=== PATIENT | female | born 1960 | race Caucasian/White ===

== ENCOUNTER 2019-10-07 10:45 | Outpatient (CLI) | payer MEDICARE, MEDICAID, SELFPAY ==
[2019-10-07 19:30] LABS: Basophils # 0.1 10^3/uL (0.0-0.1); Basophils % 0.6 %; Eosinophils # 0.3 10^3/uL (0.0-0.8); Eosinophils % 3.2 %; Hematocrit 40.5 % (37.0-47.0); Hemoglobin 12.3 g/dL (11.5-15.3); Lymphocytes # 2.7 10^3/uL (0.8-4.8); Lymphocytes % 28.5 %; Mean Corpuscular HGB Conc 30.4 g/dL (30.0-36.0); Mean Corpuscular Hemoglobin 26.8 pg (28.0-34.0); Mean Corpuscular Volume 88.2 fL (81-99); Mean Platelet Volume 10.7 fL (7.4-10.4); Monocytes # 0.6 10^3/uL (0.2-0.9); Monocytes % 6.1 %; Neutrophils # 5.9 10^3/uL (1.8-7.7); Neutrophils % 61.4 %; Nucleated Red Blood Cells % 0 %; Platelet Count 371 10^3/cmm (130-400); Red Blood Count 4.59 10^6/uL (4.1-5.3); Red Cell Distribution Width 13.9 % (12.1-15.1); White Blood Count 9.6 10^3/uL (4.0-10.0)
[2019-10-07 20:03] LABS: Alanine Aminotransferase 19 U/L (0-33); Albumin Level 4.3 g/dL (3.5-5.2); Alkaline Phosphatase 88 IU/L (35-105); Anion Gap 19.6 (5-19); Aspartate Amino Transferase 21 U/L (0-32); Blood Urea Nitrogen 16 mg/dL (8-23); Calcium 9.9 mg/dL (8.5-10.5); Carbon Dioxide 24 mmol/L (22-29); Chloride 100 mmol/L (98-107); Globulin 3.3 g/dL (1.3-4.6); Glomerular Filtration Rate 63.9 mL/min (90-130); Glucose 87 mg/dL (65-115); Osmolality Calculated 284 mOsm/kg (285-295); Potassium 4.6 mmol/L (3.5-5.1); Sodium 139 mmol/L (136-145); Total Bilirubin 0.2 mg/dL (0.15-1.2); Total Protein 7.6 g/dL (6.6-8.7)
== END 2019-10-07 10:46 | disposition home or self-care (01) ==
LOC: ONCMED 10-08 10:07
PROVIDERS: Family Provider Internal Medicine; Visit Provider Internal Medicine Medical Oncology
DX: C50.411 Malignant neoplasm of upper-outer quadrant of right female breast (principal)
CPT/HCPCS: 80053; 85025

== ENCOUNTER 2019-10-09 07:10 | Outpatient (CLI) | payer MEDICARE, MEDICAID, SELFPAY ==
--- NOTE | 2019-10-09 20:17 | ONC FU_ITS ---
Dr. Brooke Patient Follow-Up Note Patient: Karin Gonzalez Unit #: [id number]: [id number] Dicatated By: Oliver Brooke M.D.Date of Visit:Oct 09, 2019 Telehealth Progress Note The patient has been informed that the visit may not be secure and acknowledged the information. I have explained the option of participating in a telephone or video visit during the COVID-19 public health emergency to the patient. After being given an opportunity to ask questions about and discuss this type of visit, the patient verbally consented to proceeding with the telephone/video visit. the patient understands that this service replaces an office visit and they may be billed and /or responsible for any applicable copayments Chief Complaint: Breast cancer. History of Present Illness: This is a 58 year-old woman with grade 3 invasive ductal carcinoma of the right breast, stage IIIC (pT2, pN3a, M0), ER/LA positive and HER-2/zaki nonamplified. She had presented with a palpable right breast mass and axillary lymph nodes. Pre-operatively, she also had suspicious findings on MRI of the left breast. On 01/25/2012 she was taken to OR for modified radical mastectomy on the right and a simple mastectomy with axillary sentinel lymph node biopsy on the left. The right breast specimen showed a 4.4 cm high grade invasive ductal carcinoma with negative margins. However, 14/24 lymph nodes were involved. Prognostic profile showed ER 48%, LA 47%, HER-2/zaki equivocal, FISH not amplified at 1.1. Thus, her disease was stage IIIC (pT2, pN3a,M0). Her left breast pathology was benign. Her surgery was complicated with a right arm intermittent lymphedema. She completed adjuvant chemotherapy on 05/30/2012, although the regimen she received was not available from the records provided. She was prophylactic radiation to the right chest wall, completed on 08/08/2012 to a total dose of 6000 cGy. She began on adjuvant hormonal therapy with tamoxifen in August of 2012. Her LMP was at 48 years of age. She also underwent a delayed bilateral TRAM flap reconstruction on 02/24/2013. She then required revisions on 03/19/2013 and 06/16/2013, including excision of the fat necrosis at the donor site. She transferred her care to [facility] [place] and was first seen by Dr. Hwang on 08/19/2013. She was found to have a significant vitamin D deficiency. DEXA scan was normal in August of 2013. MRI of the brain performed due to ongoing headaches showed no evidence of metastatic disease, however it revealed partially empty sella turcica. TSH was within normal limits. She established care with special education resource teacher. In August of 2013 she underwent an upper endoscopy and colonoscopy, the findings were benign and included gastritis and diverticulosis. On 03/02/2014 there was concerning palpable nodule at 10:00 position of the left breast for which biopsy was recommended. A left breast ultrasound on 03/11/2014 showed a complex fluid collection up to 5 cm. An FNA of the cystic lesion was negative for malignancy. A CT of the chest on 03/26/2014 showed focal area of likely fat necrosis within the left TRAM flap. As per patient, no further intervention was recommended by her plastic surgeon, Dr. Richardson in [place]. Her tamoxifen was continued until September 2014, then switched to Femara on 10/07/2014. Her other medical illnesses include GERD, diverticulitis, chronic migraine, and depression. She also has had chronic musculoskeletal pain. She is a nonsmoker. INTERIM HISTORY: CT scans of the chest, abdomen, and pelvis on 09/13/2016 showed no evidence of disease progression in the chest and no evidence of metastatic disease in the abdomen or pelvis. I had seen her for a followup visit on 09/17/2016. She was having increased fatigue and musculoskeletal pain, and I did have her try stopping the Femara, at least temporarily. I had seen her for a follow-up visit on 11/21/2016. She reported only slight interval improvement in her musculoskeletal pain, and she then restarted Femara 2.5 mg daily. On her follow-up visit on 03/11/2017 she complained of increased joint pain, and I had her stop the Femara again. She was seen again for a followup visit on 04/16/2017. She was still having significant joint pain. Her sed rate was mildly elevated. I opted to treat with her prednisone, initially at 10 mg bid for 2 weeks, then tapering to 10 mg daily. She was seen for follow-up again on 05/16/2017. At that point she was feeling somewhat better. Her Femara remained on hold. She continued tapering the prednisone. On her follow-up visit on 06/24/2017 she was feeling better, and at that point she began further adjuvant hormonal therapy with exemestane 25 mg daily. As of her follow-up visit on 10/13/2018, she appeared to be tolerating it with acceptable toxicity. She is seen for a followup visit by Telehealth. She has been feeling pretty good generally, though she says her energy is not too good. She is able to do light work. ECOG score is 1. Her appetite also is not good, but her weight seems to be stable. She has not had fever. She does have a lot of hot flashes/sweating. Her main complaint is that her joints have been hurting a lot more, particularly in her neck and shoulders. She reports having some sinus drainage and cough. She does not complain of shortness of breath or chest pain. She sometimes has nausea early in the morning. She also complains of constipation. She has no complaints. She is not recently had any migraine headache. She has had ongoing problems with numbness/tingling in her hands. She has chronic anxiety. She has been having difficulty sleeping due to the pain. Medications: Anoro Ellipta Aerosol Powder, Breath Activated Inhalation daily, CeleXA 1 (20 mg) Tablet Oral daily, Ergocalciferol 1 (44157 Units) Capsule Oral q 30 days, Exemestane 1 (25 mg) Tablet Oral daily, Levothyroxine Sodium 1 (75 mcg) Tablet Oral daily, Meloxicam 1 (15 mg) Tablet Oral daily, Multivitamin Adult 1 Tablet Oral daily, Omeprazole 1 (20 mg) Tablet, enteric coated Oral daily, SEROquel 1 Tablet (of 25 mg) Oral PRN, SUMAtriptan Succinate 0.5 Tablet (of 100 mg) Oral PRN, Wellbutrin XL 1 (150 mg) Tablet SR 24 HR Oral daily, Xanax Tablet Oral PRN Allergies: Cipro, pain med, and tape. Review of Systems: Constitutional - She has been feeling good, though her energy is low. She is able to do work in and around the house. Her appetite is poor, but she is able to eat. Her weight is stable. No fever or chills. She is having persistant hot flashes with sweating. ECOG score is 1, ENMT - She has chronic sinus drainage. No mouth sores. No sore throat or difficulty swallowing, Hematologic/Lymphatic - No abnormal bruising or bleeding, Respiratory - No shortness of breath. She has an occasional cough due to post nasal drainage. No pleuritic pain or hemoptysis, Cardiovascular - No angina pain. No palpitations, Gastrointestinal - No nausea or vomiting. Her heartburn is well managed with Prilosec. No diarrhea. She has constipation. No blood in the stool or black stools, Genitourinary (F) - No dysuria or hematuria. No urinary frequency. No urgency or incontinence, Musculoskeletal - She is having increased joint pain, especially in her shoulders, Integumentary - No skin complications, Neurologic - No headache or dizziness. She has numbness and tingling in her hands and feet, worse to her hands, Psychiatric - Her anxiety is managed with Celexa and Wellbutrin. No depression. She is having difficulty sleeping due to pain. Physical Examination: Constitutional - She still looks pretty good generally. Lab/Imaging: Test performed on Oct 07, 2019 10:45 Sodium 139 mmol/L Potassium 4.6 mmol/L Chloride 100 mmol/L CO2 24 mmol/L Anion Gap 19.6 BUN 16 mg/dL Creatinine 0.9 mg/dL Cr Clearance (Est) 99.0100 mL/min eGFR 63.9 mL/min Glucose 87 mg/dL Calcium 9.9 mg/dL Protein, Total 7.6 g/dL Albumin 4.3 g/dL Globulin 3.3 g/dL Bilirubin, Total 0.2 mg/dL ALT (SGPT) 19 U/L AST (SGOT) 21 U/L Alkaline Phosphatase 88 IU/L WBC 9.6 10 3/uL RBC 4.59 10 6/uL HGB 12.3 g/dL HCT 40.5 % MCV 88.2 fL MCH 26.8 pg MCHC 30.4 g/dL RDW 13.9 % Platelet Count 371 10 3/cmm MPV 10.7 fL Neutrophils 5.9 10 3/uL Lymphocytes 2.7 10 3/uL Monocytes 0.6 10 3/uL Eosinophils 0.3 10 3/uL Basophils 0.1 10 3/uL Neutrophil % 61.4 % Lymphocyte % 28.5 % Monocyte % 6.1 % Eosinophil % 3.2 % Basophils % 0.6 % Impression: 1. Patient with grade 3 invasive ductal carcinoma of the right breast, stage IIIC (pT2, pN3a, M0), ER/LA positive and HER-2/zaki nonamplified. 2. She underwent right modified radical mastectomy and left simple mastectomy with axillary sentinel lymph node biopsy on 01/25/2012. 3. She was given adjuvant chemotherapy, completed in May 2012. 4. She was then given prophylactic radiation to the right chest wall, completed in July 2012 to a total dose of 6000 cGy. 5. She began adjuvant hormonal therapy with tamoxifen in August 2012. Her treatment was switched to Femara as of September 2014. 6. Her treatment has been complicated by chronic lymphedema of the right arm. Her other medical illnesses include: 7. GERD. 8. Diverticulitis. 9. Chronic migraine. 10. Depression. 11. She had MRI evidence of partially empty sella turcica. 12. She has chronic musculoskeletal pain. On her followup visit in September 2016 she had increased fatigue and she also had increasing musculoskeletal pain. I suspected some of that was related to Femara, and I did have her stop taking it. During subsequent followup, there appeared to be no significant improvement in her symptoms, and she restarted Femara as of her visit on 11/21/2016. Her joint pain subsequently worsened, and it was stopped again as of 03/11/2017. She was seen again on 04/16/2017. Her symptoms had not improved. Her sed rate was mildly elevated, and at that point I opted to give her a short course of steroid therapy with prednisone. She had some improvement in her symptoms with the prednisone, though she continued to complain of some joint pain and fatigue. As of her follow-up visit on 05/16/2017, she proceeded to taper off prednisone, but she continued meloxicam 7.5 mg daily. She remained off Femara. As of her follow-up visit on 07/04/2017 joint symptoms had improved, and she then began further adjuvant hormonal therapy with exemestane 25 mg daily. During follow-up has had some joint pain and some fatigue with the exemestane, and since her last visit, the joint pain has worsened somewhat, particularly in the neck and shoulders. She feels the side effects are still tolerable. Thus far there is been no obvious recurrence of the breast cancer. Plan: She continues adjuvant hormonal therapy with the exemestane 25 mg daily. She will be scheduled for a follow-up visit in 3 months. At that point she will have completed 5 years of aromatase inhibitor therapy, and we will have to determine whether to stop treatment or attempt to continue with extended adjuvant hormonal therapy. Signed By: Oliver Brooke M.D. <<Signature on File>>
== END 2019-10-09 07:11 | disposition home or self-care (01) ==
LOC: ONCMED 07:16
PROVIDERS: Family Provider Internal Medicine; Visit Provider Internal Medicine Medical Oncology
DX: C50.411 Malignant neoplasm of upper-outer quadrant of right female breast (principal); Z17.0 Estrogen receptor positive status [ER+]; Z79.811 Long term (current) use of aromatase inhibitors; K21.9 Gastro-esophageal reflux disease without esophagitis; K57.92 Diverticulitis of intestine, part unspecified, without perforation or abscess without bleeding; G43.709 Chronic migraine without aura, not intractable, without status migrainosus; F32.9 Major depressive disorder, single episode, unspecified; M79.10 Myalgia, unspecified site

== ENCOUNTER 2020-01-27 11:52 | Outpatient (CLI) | payer MEDICARE, MEDICAID, SELFPAY ==
[2020-01-27 13:23] LABS: 25 Hydroxy Vitamin D 14 ng/mL (30-100)
[2020-01-27 15:03] LABS: Glucose 98 mg/dL (65-115)
--- NOTE | 2020-01-30 13:16 | ONC FU_ITS ---
Dr. Brooke Patient Follow-Up Note Patient: Karin Gonzalez Unit #: [id number]: [id number] Dicatated By: Oliver Brooke M.D.Date of Visit:Jan 27, 2020 Onc Med Follow-up/Prog Note Chief Complaint: Breast cancer. History of Present Illness: This is a 58 year-old woman with grade 3 invasive ductal carcinoma of the right breast, stage IIIC (pT2, pN3a, M0), ER/IL positive and HER-2/zaki nonamplified. She had presented with a palpable right breast mass and axillary lymph nodes. Pre-operatively, she also had suspicious findings on MRI of the left breast. On 01/25/2012 she was taken to OR for modified radical mastectomy on the right and a simple mastectomy with axillary sentinel lymph node biopsy on the left. The right breast specimen showed a 4.4 cm high grade invasive ductal carcinoma with negative margins. However, 14/24 lymph nodes were involved. Prognostic profile showed ER 48%, IL 47%, HER-2/zaki equivocal, FISH not amplified at 1.1. Thus, her disease was stage IIIC (pT2, pN3a,M0). Her left breast pathology was benign. Her surgery was complicated with a right arm intermittent lymphedema. She completed adjuvant chemotherapy on 05/30/2012, although the regimen she received was not available from the records provided. She was prophylactic radiation to the right chest wall, completed on 08/08/2012 to a total dose of 6000 cGy. She began on adjuvant hormonal therapy with tamoxifen in August of 2012. Her LMP was at 48 years of age. She also underwent a delayed bilateral TRAM flap reconstruction on 02/24/2013. She then required revisions on 03/19/2013 and 06/16/2013, including excision of the fat necrosis at the donor site. She transferred her care to [facility] [place] and was first seen by Dr. Hwang on 08/19/2013. She was found to have a significant vitamin D deficiency. DEXA scan was normal in August of 2013. MRI of the brain performed due to ongoing headaches showed no evidence of metastatic disease, however it revealed partially empty sella turcica. TSH was within normal limits. She established care with stripper soft plastic. In August of 2013 she underwent an upper endoscopy and colonoscopy, the findings were benign and included gastritis and diverticulosis. On 03/02/2014 there was concerning palpable nodule at 10:00 position of the left breast for which biopsy was recommended. A left breast ultrasound on 03/11/2014 showed a complex fluid collection up to 5 cm. An FNA of the cystic lesion was negative for malignancy. A CT of the chest on 03/26/2014 showed focal area of likely fat necrosis within the left TRAM flap. As per patient, no further intervention was recommended by her plastic surgeon, Dr. Richardson in [place]. Her tamoxifen was continued until September 2014, then switched to Femara on 10/07/2014. CT scans of the chest, abdomen, and pelvis on 09/13/2016 showed no evidence of disease progression in the chest and no evidence of metastatic disease in the abdomen or pelvis. I had seen her for a followup visit on 09/17/2016. She was having increased fatigue and musculoskeletal pain, and I did have her try stopping the Femara, at least temporarily. I had seen her for a follow-up visit on 11/21/2016. She reported only slight interval improvement in her musculoskeletal pain, and she then restarted Femara 2.5 mg daily. On her follow-up visit on 03/11/2017 she complained of increased joint pain, and I had her stop the Femara again. She was seen again for a followup visit on 04/16/2017. She was still having significant joint pain. Her sed rate was mildly elevated. I opted to treat with her prednisone, initially at 10 mg bid for 2 weeks, then tapering to 10 mg daily. She was seen for follow-up again on 05/16/2017. At that point she was feeling somewhat better. Her Femara remained on hold. She continued tapering the prednisone. On her follow-up visit on 06/24/2017 she was feeling better, and at that point she began further adjuvant hormonal therapy with exemestane 25 mg daily. Her other medical illnesses include GERD, diverticulitis, chronic migraine, and depression. She also has had chronic musculoskeletal pain. She is a nonsmoker. INTERIM HISTORY: She is seen for a followup visit. She has been feeling okay, though she says her energy is still not real good. She is working. ECOG score is 1. She has good appetite. She has not had fever. She complains that she sweats all the time. She has constant sinus drainage, and she does have cough associated with phlegm in her throat. She does not complain of shortness of breath or chest pain. She does have obstructive sleep apnea, but she has never tried CPAP. She has no GI/ complaints other than some mild constipation. She has some joint pain, but not bad. She says her migraines are getting worse. She is having significant headaches at least 2-3 times a month. She occasionally has dizziness. She has a little bit of numbness/tingling. Medications: Anoro Ellipta Aerosol Powder, Breath Activated Inhalation daily, CeleXA 1 (20 mg) Tablet Oral daily, Exemestane 1 (25 mg) Tablet Oral daily, Levothyroxine Sodium 1 (75 mcg) Tablet Oral daily, Meloxicam 1 (15 mg) Tablet Oral daily, Multivitamin Adult 1 Tablet Oral daily, Omeprazole 1 (20 mg) Tablet, enteric coated Oral daily, SEROquel 1 Tablet (of 25 mg) Oral PRN, SUMAtriptan Succinate 0.5 Tablet (of 100 mg) Oral PRN, Wellbutrin XL 1 (150 mg) Tablet SR 24 HR Oral daily, Xanax Tablet Oral PRN Allergies: Cipro, pain med, and tape. Review of Systems: Constitutional - Her energy is not real good, but she is working. She has good appetite. She has not had fever. She says she sweats all the time. ECOG score is 1, ENMT - She has constant sinus drainage. No mouth sores. No sore throat or difficulty swallowing, Hematologic/Lymphatic - No abnormal bruising or bleeding, Respiratory - No shortness of breath. She has obstructive sleep apnea, but she has never tried CPAP. She has cough associated with phlegm in her throat. No pleuritic pain or hemoptysis, Cardiovascular - No angina pain. No palpitations, Gastrointestinal - No nausea or vomiting. Her acid reflux is adequately managed with medication. She has constipation. No blood in the stool or black stools, Genitourinary (F) - No dysuria or hematuria. No urinary frequency. No urgency or incontinence, Musculoskeletal - She has some joint pain, but not bad, Integumentary - No skin rash, Neurologic - She has migraine headaches 2-3 times a month. She thinks those are getting worse. She occasionally has dizziness. She has a little bit of numbness/tingling, Psychiatric - She has anxiety. She does not sleep very well at night. Vital Signs: Performed on Jan 27, 2020 13:26 Height - 63.00 in Weight - 63.00 lbs (LOW) BSA - 1.18 sq.m BMI - 11.16 (LOW) Temperature - 98.8 F Pulse - 95 /min Respiration - 20 /min BP - 131/85 mm(hg) O2 Sat - 98 % Pain - 6 Physical Examination: Constitutional - She looks pretty good generally, Eyes - Sclerae nonicteric. Conjunctivae clear, ENMT - No lesions noted in the oral cavity, Hematologic/Lymphatic - No cervical, clavicular, or axillary adenopathy, Respiratory - Lungs are clear with good air movement bilaterally, Cardiovascular - Heart rhythm is regular. There is no murmur, gallop, or rub noted, Abdomen - Soft. There is a mild abdominal wall herniation in the lower abdomen. Liver and spleen are not enlarged. There is no abdominal mass or ascites noted and there is no inguinal adenopathy, Extremities - There is chronic lymphedema of the right arm. There is no lower extremity edema. Pedal pulses are palpable bilaterally, Neurologic - No focal neurologic deficits noted. Lab/Imaging: Test performed on Jan 27, 2020 12:12 Glucose 98 mg/dL Test performed on Jan 27, 2020 12:10 Vitamin D (25-Hydroxy), Total 14 ng/mL Impression: 1. Patient with grade 3 invasive ductal carcinoma of the right breast, stage IIIC (pT2, pN3a, M0), ER/IL positive and HER-2/zaki nonamplified. 2. She underwent right modified radical mastectomy and left simple mastectomy with axillary sentinel lymph node biopsy on 01/25/2012. 3. She was given adjuvant chemotherapy, completed in May 2012. 4. She was then given prophylactic radiation to the right chest wall, completed in July 2012 to a total dose of 6000 cGy. 5. She began adjuvant hormonal therapy with tamoxifen in August 2012. Her treatment was switched to Femara as of September 2014. 6. Her treatment has been complicated by chronic lymphedema of the right arm. Her other medical illnesses include: 7. GERD. 8. Diverticulitis. 9. Chronic migraine. 10. Depression. 11. She had MRI evidence of partially empty sella turcica. 12. She has chronic musculoskeletal pain. On her followup visit in September 2016 she had increased fatigue and she also had increasing musculoskeletal pain. I suspected some of that was related to Femara, and I did have her stop taking it. During subsequent followup, there appeared to be no significant improvement in her symptoms, and she restarted Femara as of her visit on 11/21/2016. Her joint pain subsequently worsened, and it was stopped again as of 03/11/2017. She was seen again on 04/16/2017. Her symptoms had not improved. Her sed rate was mildly elevated, and at that point I opted to give her a short course of steroid therapy with prednisone. She had some improvement in her symptoms with the prednisone, though she continued to complain of some joint pain and fatigue. As of her follow-up visit on 05/16/2017, she proceeded to taper off prednisone, but she continued meloxicam 7.5 mg daily. She remained off Femara. As of her follow-up visit on 07/04/2017 joint symptoms had improved, and she then began further adjuvant hormonal therapy with exemestane 25 mg daily. During follow-up has had some joint pain and some fatigue with the exemestane. However, she has been able to tolerate it with acceptable toxicity and thus far there has been no evidence of recurrence of the breast cancer. Plan: She continues adjuvant hormonal therapy with the exemestane 25 mg daily. She will start vitamin D3 1000 units daily. I will see her again in 6 months, or sooner as needed. Signed By: Oliver Brooke M.D. <<Signature on File>>
== END 2020-01-27 11:53 | disposition home or self-care (01) ==
LOC: ONCMED 11:56
PROVIDERS: PCP Internal Medicine; Visit Provider Internal Medicine Medical Oncology
DX: C50.411 Malignant neoplasm of upper-outer quadrant of right female breast (principal); Z17.0 Estrogen receptor positive status [ER+]; E83.32 Hereditary vitamin D-dependent rickets (type 1) (type 2); E11.9 Type 2 diabetes mellitus without complications; K21.9 Gastro-esophageal reflux disease without esophagitis; K57.92 Diverticulitis of intestine, part unspecified, without perforation or abscess without bleeding; Z92.3 Personal history of irradiation; Z92.21 Personal history of antineoplastic chemotherapy; Z90.13 Acquired absence of bilateral breasts and nipples; Z79.818 Long term (current) use of other agents affecting estrogen receptors and estrogen levels; G43.909 Migraine, unspecified, not intractable, without status migrainosus; F32.9 Major depressive disorder, single episode, unspecified
CPT/HCPCS: 36415; 82306; 82947; 99214

== ENCOUNTER 2020-09-05 00:51 | Emergency (ER) | payer MEDICARE, MEDICAID, SELFPAY ==
[2020-09-05] VITALS (7 sets, daily range): BP systolic 107–139; BP diastolic 71–93; PULSE 89–112; RESP 16–18; TEMP 37.2–38.2; O2SAT 95–97; BMI 35.4
--- NOTE | 2020-09-05 00:52 | XR_ITS ---
WS: [id number] RIGHT SHOULDER: 2 VIEW(S) TECHNIQUE: Internal and external rotation. HISTORY: pain COMPARISON: None available. No fracture or dislocation or soft tissue abnormality. Mild narrowing of the AC joint with small hypertrophic osteophytes. Glenohumeral joint is mildly narrowed. 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 XR/XR shoulder RT min 2V* [id number] IMPRESSION: Mild before meals and glenohumeral joint arthritis.
--- NOTE | 2020-09-05 01:12 | ED_ITS ---
HPI - Extremity Problem General: Chief complaint: Extremity Problem,Nontraumatic Stated complaint: RIGHT SHOULDER PAIN Time Seen by Provider: 09/05/20 00:52 Source: patient Mode of arrival: ambulatory Limitations: no limitations History of Present Illness: HPI Narrative: 59-year-old female who has a history of breast cancer and has chronic lymphedema in her right arm. States o markell the last 4 to 5 days she is had increasing shoulder pain. States that her pain is got severe tonight and rates an 8 out of 10. She states she had decreased range of motion. She denies any fever. Denies any injury. Denies any increased swelling to her arm. States the pain is worse with motion and improved with rest Associated symptoms: Deny chest pain, fever(s) or rash Review of Systems Const: Denies: fever(s), chills, body aches or change in appetite Eyes: Denies: blurry vision or eye discomfort ENMT: Denies: throat pain or dental pain Card: Denies: chest pain Resp: Denies: dyspnea GI: Denies: abdominal pain, nausea, vomiting or diarrhea : Denies: dysuria Musc: Reports: joint pain Skin/Breast: Denies: rash Neuro: Denies: headache(s) Psych: Denies: depression Douglas/Lymph: Denies: easy bruising All/Imm: Denies: urticaria PFSH ED PFSH: Medical History (Updated 09/05/20 @ 04:33 by Candice Sanderson MD) Acquired lymphedema Anxiety Depression Diverticulitis Gastric ulcer GERD (gastroesophageal reflux disease) Hiatal hernia History of breast cancer in adulthood Lymph node enlargement Surgical History (Updated 01/08/20 @ 23:03 by TONYA Mcdonald) History of mastectomy, total Social History Smoking and tobacco status: never smoked Second hand smoke exposure: No Smoking risk assessment/counseling performed?: No Alcohol intake: never Desire information about alcohol rehabilitation?: No Desire information about substance/drug rehabilitation?: No Counseling given: No Physical Exam Const: COMMON NORMALS: no acute distress, patient oriented x3 and healthy appearing HENMT: COMMON NORMALS: normocephalic and atraumatic HEAD & SCALP: normocephalic and atraumatic Eye: COMMON NORMALS: Equal, round and reactive pupils present and EOMs intact bilaterally PUPIL: Yes Equal, round and reactive pupils present Neck/C-Spine: COMMON NORMALS: full ROM and supple Chest: COMMONS NORMALS: normal inspection of the chest and normal palpation of entire chest wall Resp: COMMON NORMALS: normal respiratory effort, No retractions, No use of accessory muscles and clear to auscultation bilaterally AUSCULTATION: clear to auscultation bilaterally Cardio: COMMON NORMALS: regular rate, regular rhythm and No murmurs present (Cardio) RATE: regular rate RHYTHM: regular rhythm GI: COMMON NORMALS: Normal to inspection, nondistended, normoactive bowel sounds present, Soft to palpation, non-tender and no masses PALPATION: Yes Soft to palpation Extremity: NARRATIVE EXTREMITY EXAM: Swelling to right arm that is chronic in nature from lymphedema. Tenderness in right shoulder with painful range of motion. No warmth to the shoulder joint. Distal pulses intact. Neuro: COMMON NORMALS: patient oriented x3, moves all extremities and no focal motor deficits Psych: COMMON NORMALS: mental status grossly normal, Normal thought process present and cooperative THOUGHT PROCESS: Normal thought process present Skin: COMMON NORMALS: no rashes or lesions noted and no wounds GENERAL SKIN EXAM: no rashes or lesions noted Course Vital Signs: Vital signs: Vital Signs Temperature 99.7 F H 09/05/20 05:07 Pulse Rate 91 09/05/20 05:07 Respiratory Rate 16 09/05/20 05:07 Blood Pressure 107/71 09/05/20 05:07 Pulse Oximetry 96 09/05/20 05:07 MDM - Extremity (Nontraumatic) MDM Narrative: Medical decision making narrative: Patient presented with a fever along with shoulder pain. Patient does have a fever here and elevated white count. CT showed no fluid collection in the joint ultrasound showed no DVT. I strongly recommended admission and she does have elevated white count I informed her I still concern for possible septic joint. She states she has had this in the past since cleared up with antibiotics at home. Patient refused admission and will place her on Augmentin. She is to follow-up with her PCP and return to ER if worsening. She understands and agrees to plan. Lab Data: Labs: Lab Results 09/05/20 09/05/20 09/05/20 Range/Units 01:28 01:28 01:28 WBC 17.4 H (4.0-10.0) 10^3/ uL RBC 4.50 (4.1-5.3) 10^6/u L Hgb 12.1 (11.5-15.3) g/dL Hct 39.7 (37.0-47.0) % MCV 88.2 (81-99) fL MCH 26.9 L (28.0-34.0) pg MCHC 30.5 (30.0-36.0) g/dL RDW 13.0 (12.1-15.1) % Plt Count 412 H (130-400) 10^3/c mm MPV 9.9 (7.4-10.4) fL Neut % (Auto) 69.0 % Lymph % (Auto) 21.0 % [place] % (Auto) 8.0 % Eos % (Auto) 1.2 % Baso % (Auto) 0.5 % Neut # (Auto) 12.02 H (1.8-7.7) 10^3/u L Lymph # (Auto) 3.7 (0.8-4.8) 10^3/u L [place] # (Auto) 1.4 H (0.2-0.9) 10^3/u L Eos # (Auto) 0.2 (0.0-0.8) 10^3/u L Baso # (Auto) 0.1 (0.0-0.1) 10^3/u L Nucleated RBC % (a uto) 0 % Nucleated RBCs # 0.0 /100WBC ESR Cancelled Sodium 137 (136-145) mmol/L Potassium 4.0 (3.5-5.1) mmol/L Chloride 101 (98-107) mmol/L Carbon Dioxide 24 (22-29) mmol/L Anion Gap 16.0 (5-19) BUN 17 (8-23) mg/dL Creatinine 0.9 (0.5-0.9) mg/dL GFR Calculation 63.7 L (90-130) mL/min Glucose 109 (65-115) mg/dL Calculated Osmolal ity 286 (285-295) mOsm/k g Lactate (0.5-2.2) mmol/L Calcium 9.5 (8.5-10.5) mg/dL C-Reactive Protein (0.0-4.9) mg/L 09/05/20 09/05/20 09/05/20 Range/Units 01:28 02:23 03:49 WBC (4.0-10.0) 10^3/ uL RBC (4.1-5.3) 10^6/u L Hgb (11.5-15.3) g/dL Hct (37.0-47.0) % MCV (81-99) fL MCH (28.0-34.0) pg MCHC (30.0-36.0) g/dL RDW (12.1-15.1) % Plt Count (130-400) 10^3/c mm MPV (7.4-10.4) fL Neut % (Auto) % Lymph % (Auto) % [place] % (Auto) % Eos % (Auto) % Baso % (Auto) % Neut # (Auto) (1.8-7.7) 10^3/u L Lymph # (Auto) (0.8-4.8) 10^3/u L [place] # (Auto) (0.2-0.9) 10^3/u L Eos # (Auto) (0.0-0.8) 10^3/u L Baso # (Auto) (0.0-0.1) 10^3/u L Nucleated RBC % (a uto) % Nucleated RBCs # /100WBC ESR 55 H Sodium (136-145) mmol/L Potassium (3.5-5.1) mmol/L Chloride (98-107) mmol/L Carbon Dioxide (22-29) mmol/L Anion Gap (5-19) BUN (8-23) mg/dL Creatinine (0.5-0.9) mg/dL GFR Calculation (90-130) mL/min Glucose (65-115) mg/dL Calculated Osmolal ity (285-295) mOsm/k g Lactate 0.9 (0.5-2.2) mmol/L Calcium (8.5-10.5) mg/dL C-Reactive Protein 20.6 H (0.0-4.9) mg/L Imaging Data^: CT Chest: Attestation: I personally reviewed and interpreted this imaging study as follows: Radiologist's impression: [employer] [address] [address] Scan Report Signed Patient: Karin Gonzalez Unit #: [id number] : 1960 Age/Sex: 59 / F ADM Date: 09/05/20 Loc: ER Room/Bed: Attending Dr: Ordering Provider/Ordering MD: Candice Sanderson MD Date of Service: 09/05/20 Procedure(s): CT chest w con* [id number] Accession Number(s): [id number] Report Number: [id number] PROCEDURE INFORMATION: Exam: CT Chest With Contrast; Diagnostic Exam date and time: 09/05/2020 2:31 AM Age: 59 years old Clinical indication: Fever; Prior surgery; Surgery date: 6+ months; Surgery type: Double masectomy TECHNIQUE: Imaging protocol: Diagnostic computed tomography of the chest with contrast. Radiation optimization: All CT scans at this facility use at least one of these dose optimization techniques: automated exposure control; mA and/or kV adjustment per patient size (includes targeted exams where dose is matched to clinical indication); or iterative reconstruction. Contrast material: OMNI 300; Contrast volume: 95 ml; Contrast route: INTRAVENOUS (IV); COMPARISON: CT Chest/Abdomen/Pelvis wwo 09/13/2016 1:43 PM RADIATION DOSE METRICS: Total DLP (mGy-cm): 979.89 FINDINGS: Lungs: Unremarkable. No consolidation. No masses. Pleural spaces: Unremarkable. No pneumothorax. No pleural effusion. Heart: Unremarkable. No cardiomegaly. No pericardial effusion. Mediastinal space: There is a small hiatal hernia. Aorta: Unremarkable. No aortic aneurysm. Lymph nodes: There has been a right axillary node dissection. Gallbladder and bile ducts: There has been a cholecystectomy. Bones/joints: Unremarkable. No acute fracture. Soft tissues: There is peripheral calcification of a region of the left breast fat which has progressed since the previous examination. Surgical clips are present in both breasts. CT/CT chest w con* [id number] IMPRESSION: 1. Fat necrosis in the left breast. 2. No cause for pain is identified. 3. Small hiatal hernia. Other CT: Radiologist's impression: [place] [address] [place] [address] CT Scan Report Signed Patient: Karin Gonzalez Unit #: [id number] : 1960 Age/Sex: 59 / F ADM Date: 09/05/20 Loc: ER Room/Bed: Attending Dr: Ordering Provider/Ordering MD: Candice Sanderson MD Date of Service: 09/05/20 Procedure(s): CT shoulder RT w con Accession Number(s): [id number] Report Number: [id number] PROCEDURE INFORMATION: Exam: CT Right Upper Extremity With Contrast, Shoulder Exam date and time: 09/05/2020 2:31 AM Age: 59 years old Clinical indication: Swelling; Arm, lower and arm, upper; Right; Prior surgery; Surgery date: 6+ months; Surgery type: Lymph nodes removed; Additional info: Pain TECHNIQUE: Imaging protocol: CT of the Right upper extremity with contrast material. Exam focused on the shoulder Radiation optimization: All CT scans at this facility use at least one of these dose optimization techniques: automated exposure control; mA and/or kV adjustment per patient size (includes targeted exams where dose is matched to clinical indication); or iterative reconstruction. Contrast material: OMNI 300; Contrast volume: 95 ml; Contrast route: INTRAVENOUS (IV); COMPARISON: No relevant prior studies available. 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 No acute fracture or dislocation. There is a patulous right shoulder joint capsule. Soft tissues: No soft tissue abscess. Lymph nodes: There has been a right axillary node dissection. Lungs: Visualized portions of the right lung are clear. CT/CT shoulder RT w con [id number] IMPRESSION: 1. No acute fracture or dislocation. 2. There is a patulous right shoulder joint capsule. 3. No cause for pain is identified. Discharge Plan Discharge Patient Disposition: Home Clinical Impression: Fever Qualifiers: Fever type: unspecified Qualified Code(s): R50.9 - Fever, unspecified Pain in right shoulder Qualifiers: Chronicity: acute Qualified Code(s): M25.511 - Pain in right shoulder Condition: Stable Prescriptions: [place] 5-325 mg tablet 1 tab PO Q6H PRN (Reason: pain) Qty: 14 RF: 0 ondansetron 4 mg tablet,disintegrating 4 mg PO Q6H PRN (Reason: nausea and vomiting) Qty: 14 RF: 0 Augmentin 875-125 mg tablet 1 tab PO BID Qty: 14 RF: 0 No Action bupropion HCl 300 mg tablet extended release 24 hr 300 mg PO QAM RF: 0 levothyroxine 75 mcg capsule 75 mcg PO DAILY RF: 0 omeprazole 20 mg capsule,delayed release(DR/EC) 20 mg PO BID RF: 0 meloxicam 15 mg tablet 15 mg PO DAILY RF: 0 citalopram [Celexa] 20 mg tablet 20 mg PO DAILY RF: 0 montelukast [Singulair] 10 mg tablet 10 mg PO DAILY RF: 0 exemestane 25 mg tablet 25 mg PO DAILY RF: 0 Anoro Ellipta 62.5-25 mcg/actuation blister with device 1 inh INHALATION DAILY RF: 0 alprazolam 0.5 mg tablet 0.5 mg PO BID RF: 0 permethrin 5 % cream 1 applic TOPICAL Q14D Qty: 60 RF: 1 Discharge Orders: Discharge ED (Routine); Ordered 09/05/20 Ordered By: Candice Sanderson Referrals: Oliver Rae DO [Primary Care Provider] - Discharge Diet: Advance as tolerated Discharge Activity: Resume usual activity Patient Instructions: Fever in Adults (ED), Opioid Safety Coding Level of Care Code ED Senior Office Assistant for Luanng Fwd Exam Comprehensive
[2020-09-05 01:30] LABS: Basophils # 0.1 10^3/uL (0.0-0.1); Basophils % 0.5 %; Eosinophils # 0.2 10^3/uL (0.0-0.8); Eosinophils % 1.2 %; Hematocrit 39.7 % (37.0-47.0); Hemoglobin 12.1 g/dL (11.5-15.3); Lymphocytes # 3.7 10^3/uL (0.8-4.8); Mean Corpuscular HGB Conc 30.5 g/dL (30.0-36.0); Mean Corpuscular Hemoglobin 26.9 pg (28.0-34.0); Mean Corpuscular Volume 88.2 fL (81-99); Mean Platelet Volume 9.9 fL (7.4-10.4); Monocytes # 1.4 10^3/uL (0.2-0.9); Neutrophils # 12.02 10^3/uL (1.8-7.7); Nucleated Red Blood Cells % 0 %; Platelet Count 412 10^3/cmm (130-400); White Blood Count 17.4 10^3/uL (4.0-10.0)
[2020-09-05] MEDS: ondansetron 2 mg/ML SDV 2 mL 4 MG IVP (01:36)
--- NOTE | 2020-09-05 01:37 | CTR_ITS ---
PROCEDURE INFORMATION: Exam: CT Right Upper Extremity With Contrast, Shoulder Exam date and time: 09/05/2020 2:31 AM Age: 59 years old Clinical indication: Swelling; Arm, lower and arm, upper; Right; Prior surgery; Surgery date: 6+ months; Surgery type: Lymph nodes removed; Additional info: Pain TECHNIQUE: Imaging protocol: CT of the Right upper extremity with contrast material. Exam focused on the shoulder Radiation optimization: All CT scans at this facility use at least one of these dose optimization techniques: automated exposure control; mA and/or kV adjustment per patient size (includes targeted exams where dose is matched to clinical indication); or iterative reconstruction. Contrast material: OMNI 300; Contrast volume: 95 ml; Contrast route: INTRAVENOUS (IV); COMPARISON: No relevant prior studies available. 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 No acute fracture or dislocation. There is a patulous right shoulder joint capsule. Soft tissues: No soft tissue abscess. Lymph nodes: There has been a right axillary node dissection. Lungs: Visualized portions of the right lung are clear. CT/CT shoulder RT w con [id number] IMPRESSION: 1. No acute fracture or dislocation. 2. There is a patulous right shoulder joint capsule. 3. No cause for pain is identified. Radiation Dose CTDIVOL = (mGy): DLP = 1826.75 (mGy-cm)
--- NOTE | 2020-09-05 01:38 | XR_ITS ---
WS: [id number] Exam: XR chest 1V portable [id number] Date/Time of Exam: 09/05/2020 2:31 AM Reason For Exam: fever Comparison 07/03/2016. The lungs are clear and fully expanded. Normal cardiomediastinal structures and bony elements. Surgic al clips along both axilla. XR/XR chest 1V portable [id number] IMPRESSION: 1. No acute cardiopulmonary finding. No change.
[2020-09-05] MEDS: morphine 4 mg/mL SDV 1 mL IVP (01:39)
--- NOTE | 2020-09-05 01:40 | CTR_ITS ---
PROCEDURE INFORMATION: Exam: CT Chest With Contrast; Diagnostic Exam date and time: 09/05/2020 2:31 AM Age: 59 years old Clinical indication: Fever; Prior surgery; Surgery date: 6+ months; Surgery type: Double masectomy TECHNIQUE: Imaging protocol: Diagnostic computed tomography of the chest with contrast. Radiation optimization: All CT scans at this facility use at least one of these dose optimization techniques: automated exposure control; mA and/or kV adjustment per patient size (includes targeted exams where dose is matched to clinical indication); or iterative reconstruction. Contrast material: OMNI 300; Contrast volume: 95 ml; Contrast route: INTRAVENOUS (IV); COMPARISON: CT Chest/Abdomen/Pelvis wwo 09/13/2016 1:43 PM RADIATION DOSE METRICS: Total DLP (mGy-cm): 979.89 FINDINGS: Lungs: Unremarkable. No consolidation. No masses. Pleural spaces: Unremarkable. No pneumothorax. No pleural effusion. Heart: Unremarkable. No cardiomegaly. No pericardial effusion. Mediastinal space: There is a small hiatal hernia. Aorta: Unremarkable. No aortic aneurysm. Lymph nodes: There has been a right axillary node dissection. Gallbladder and bile ducts: There has been a cholecystectomy. Bones/joints: Unremarkable. No acute fracture. Soft tissues: There is peripheral calcification of a region of the left breast fat which has progressed since the previous examination. Surgical clips are present in both breasts. CT/CT chest w con* [id number] IMPRESSION: 1. Fat necrosis in the left breast. 2. No cause for pain is identified. 3. Small hiatal hernia. Radiation Dose CTDIVOL = (mGy): DLP = 979.89 (mGy-cm)
[2020-09-05 01:50] LABS: Blood Urea Nitrogen 17 mg/dL (8-23); Calcium 9.5 mg/dL (8.5-10.5); Carbon Dioxide 24 mmol/L (22-29); Chloride 101 mmol/L (98-107); Glomerular Filtration Rate 63.7 mL/min (90-130); Glucose 109 mg/dL (65-115); Osmolality Calculated 286 mOsm/kg (285-295); Sodium 137 mmol/L (136-145)
[2020-09-05 02:30] LABS: C Reactive Protein 20.6 mg/L (0.0-4.9)
[2020-09-05] MEDS: iohexol 300 mg/mL 100 mL Btl IV (02:46)
[2020-09-05 03:07] LABS: Erythrocyte Sedimentation Rate 55 mm/hr (0-15)
--- NOTE | 2020-09-05 03:28 | USCV_ITS ---
Karin Gonzalez Age: 59 Gender: F : 1960 Exam Date: 09/05/2020 03:53 Ordering Phys: Candice Sanderson MD Technologist: Exam Location[place] [facility] [place]: RT SHOULDER PAIN HISTORY: Upper extremity pain. PROCEDURES: Venous duplex imaging was performed in only the right upper extremity. The following venous structures were evaluated: internal jugular vein, subclavian vein, axillary vein, and brachial veins. In addition, the basilic vein, cephalic vein, radial vein, and ulnar vein. FINDINGS: No evidence of deep vein thrombosis or superficial thrombophlebitis in the right upper extremity. The veins were found to be easily compressible with no evidence of thrombosis. CONCLUSIONS No evidence of venous thrombosis in the above-mentioned identifiable veins in the right upper extremity Dr Vandana Oscar MD FAC (Electronically Signed) Final Date: 05 September 2020 17:28 S
[2020-09-05] MEDS: vancomycin 1,000 MG in sodium chloride 0.9% 250 ML 250 MG IV (03:57)
[2020-09-05] MEDS: acetaminophen 500 mg Tablet 1000 MG PO (04:00)
[2020-09-05 04:28] LABS: Lactate (Lactic Acid level) 0.9 mmol/L (0.5-2.2)
== END 2020-09-05 05:08 | disposition home or self-care (01) ==
PROVIDERS: Emergency Provider Emergency Medicine; PCP Internal Medicine
DX: M25.511 Pain in right shoulder (principal); R50.9 Fever, unspecified; Z85.3 Personal history of malignant neoplasm of breast
CPT/HCPCS: 71045; 71260; 73030; 73201; 80048; 83605; 85025; 85651; 86140; 87040; 93971; 96365; 96375; 99285; J2270; J2405; J3370; J7050; Q9967

== ENCOUNTER 2020-09-13 13:34 | Outpatient (CLI) | payer MEDICARE, MEDICAID, SELFPAY ==
[2020-09-13 15:01] LABS: Basophils # 0.1 10^3/uL (0.0-0.1); Basophils % 0.5 %; Eosinophils # 0.3 10^3/uL (0.0-0.8); Eosinophils % 2.7 %; Hematocrit 36.9 % (37.0-47.0); Hemoglobin 11.3 g/dL (11.5-15.3); Lymphocytes # 2.3 10^3/uL (0.8-4.8); Lymphocytes % 20.7 %; Mean Corpuscular HGB Conc 30.6 g/dL (30.0-36.0); Mean Corpuscular Hemoglobin 26.4 pg (28.0-34.0); Mean Corpuscular Volume 86.2 fL (81-99); Mean Platelet Volume 9.7 fL (7.4-10.4); Monocytes # 0.9 10^3/uL (0.2-0.9); Neutrophils # 7.49 10^3/uL (1.8-7.7); Neutrophils % 67.7 %; Nucleated Red Blood Cells % 0 %; Platelet Count 516 10^3/cmm (130-400); Red Blood Count 4.28 10^6/uL (4.1-5.3); Red Cell Distribution Width 12.8 % (12.1-15.1); White Blood Count 11.1 10^3/uL (4.0-10.0)
[2020-09-13 15:41] LABS: 25 Hydroxy Vitamin D 12 ng/mL (30-100)
--- NOTE | 2020-09-17 10:13 | ONC FU_ITS ---
Dr. Brooke Patient Follow-Up Note Patient: Karin Gonzalez Unit #: [id number]: 1960 Dicatated By: Oliver Brooke M.D.Date of Visit:Sep 13, 2020 Onc Med Follow-up/Prog Note Chief Complaint: Breast cancer. History of Present Illness: This is a 59 year-old woman with grade 3 invasive ductal carcinoma of the right breast, stage IIIC (pT2, pN3a, M0), ER/MI positive and HER-2/zaki nonamplified. She had presented with a palpable right breast mass and axillary lymph nodes. Pre-operatively, she also had suspicious findings on MRI of the left breast. On 01/25/2012 she was taken to OR for modified radical mastectomy on the right and a simple mastectomy with axillary sentinel lymph node biopsy on the left. The right breast specimen showed a 4.4 cm high grade invasive ductal carcinoma with negative margins. However, 14/24 lymph nodes were involved. Prognostic profile showed ER 48%, MI 47%, HER-2/zaki equivocal, FISH not amplified at 1.1. Thus, her disease was stage IIIC (pT2, pN3a,M0). Her left breast pathology was benign. Her surgery was complicated with a right arm intermittent lymphedema. She completed adjuvant chemotherapy on 05/30/2012, although the regimen she received was not available from the records provided. She was prophylactic radiation to the right chest wall, completed on 08/08/2012 to a total dose of 6000 cGy. She began on adjuvant hormonal therapy with tamoxifen in August of 2012. Her LMP was at 48 years of age. She also underwent a delayed bilateral TRAM flap reconstruction on 02/24/2013. She then required revisions on 03/19/2013 and 06/16/2013, including excision of the fat necrosis at the donor site. She [place] her [place] [facility] [place] was first seen by Dr. Hwang on 08/19/2013. She was found to have a significant vitamin D deficiency. DEXA scan was normal in August of 2013. MRI of the brain performed due to ongoing headaches showed no evidence of metastatic disease, however it revealed partially empty sella turcica. TSH was within normal limits. She established care with balance sheet analyst. In August of 2013 she underwent an upper endoscopy and colonoscopy, the findings were benign and included gastritis and diverticulosis. On 03/02/2014 there was concerning palpable nodule at 10:00 position of the left breast for which biopsy was recommended. A left breast ultrasound on 03/11/2014 showed a complex fluid collection up to 5 cm. An FNA of the cystic lesion was negative for malignancy. A CT of the chest on 03/26/2014 showed focal area of likely fat necrosis within the left TRAM flap. As per patient, no further intervention was recommended by her plastic surgeon, Dr. Richardson in [place]. Her tamoxifen was continued until September 2014, then switched to Femara on 10/07/2014. CT scans of the chest, abdomen, and pelvis on 09/13/2016 showed no evidence of disease progression in the chest and no evidence of metastatic disease in the abdomen or pelvis. I had seen her for a followup visit on 09/17/2016. She was having increased fatigue and musculoskeletal pain, and I did have her try stopping the Femara, at least temporarily. I had seen her for a follow-up visit on 11/21/2016. She reported only slight interval improvement in her musculoskeletal pain, and she then restarted Femara 2.5 mg daily. On her follow-up visit on 03/11/2017 she complained of increased joint pain, and I had her stop the Femara again. She was seen again for a followup visit on 04/16/2017. She was still having significant joint pain. Her sed rate was mildly elevated. I opted to treat with her prednisone, initially at 10 mg bid for 2 weeks, then tapering to 10 mg daily. She was seen for follow-up again on 05/16/2017. At that point she was feeling somewhat better. Her Femara remained on hold. She continued tapering the prednisone. On her follow-up visit on 06/24/2017 she was feeling better, and at that point she began further adjuvant hormonal therapy with exemestane 25 mg daily. Her other medical illnesses include GERD, diverticulitis, chronic migraine, and depression. She also has had chronic musculoskeletal pain. She is a nonsmoker. INTERIM HISTORY: On 09/05/2020 she was seen in the emergency room with increased pain in the right shoulder and arm. Her chest CT showed evidence of fat necrosis in the left breast/reconstruction, but there was no evidence of metastatic disease and there was no apparent cause for the pain. CT of the right shoulder showed evidence of patulous right shoulder joint capsule but again there was no apparent cause for the pain identified. She also had a slight fever and she thought the underlying problem was cellulitis and she finally did convince them to treat her with antibiotic. She is seen for a scheduled visit. She now close to completing her course of treatment with Augmentin. Her symptoms are improving, though not completely resolved. She says her energy is the same. She has limited activity, but she is able to do light work. Appetite is variable. She has continued to have some slight fever, up to 100.1 degrees. She has a little bit of cough. She does not complain of shortness of breath or chest pain. She was having nausea, that has improved. She has chronic constipation. Bladder function has been okay. She also has some pain in her hips, which is chronic. She has headache off and on. She has some numbness in her hands. Medications: Anoro Ellipta Aerosol Powder, Breath Activated Inhalation daily, CeleXA 1 (20 mg) Tablet Oral daily, Exemestane 1 (25 mg) Tablet Oral daily, Levothyroxine Sodium 1 (75 mcg) Tablet Oral daily, Meloxicam 1 (15 mg) Tablet Oral daily, Multivitamin Adult 1 Tablet Oral daily, Omeprazole 1 (20 mg) Tablet, enteric coated Oral daily, SEROquel 1 Tablet (of 25 mg) Oral PRN, SUMAtriptan Succinate 0.5 Tablet (of 100 mg) Oral PRN, Wellbutrin XL 1 (150 mg) Tablet SR 24 HR Oral daily, Xanax Tablet Oral PRN Allergies: Cipro, pain med, and tape. Vital Signs: Performed on Sep 13, 2020 15:28 Height - 63.00 in Weight - 205.2 lbs (HIGH) BSA - 1.96 sq.m BMI - 36.35 (HIGH) Temperature - 98.7 F Pulse - 98 /min Respiration - 18 /min BP - 122/76 mm(hg) O2 Sat - 98 % Pain - 0 Fatigue - 6 Physical Examination: Constitutional - She looks pretty good generally, Eyes - Sclerae nonicteric. Conjunctivae clear, ENMT - No lesions noted in the oral cavity, Hematologic/Lymphatic - No cervical or clavicular adenopathy, Respiratory - Lungs are clear with good air movement bilaterally, Cardiovascular - Heart rhythm is regular. There is no murmur, gallop, or rub noted, Breasts - There are no lesions noted in the chest wall/reconstruction bilaterally. There is no axillary adenopathy, Abdomen - Soft. Liver and spleen are not enlarged. There is no abdominal mass or ascites noted and there is no inguinal adenopathy, Extremities - There is chronic lymphedema of the right arm. There is no associated erythema, and it does not feel warm to touch. There is limited range of motion at the right shoulder. There is no lower extremity edema, Neurologic - No focal neurologic deficits noted. Problem List: 1. Patient with grade 3 invasive ductal carcinoma of the right breast, stage IIIC (pT2, pN3a, M0), ER/MI positive and HER-2/zaki nonamplified. 2. She has chronic lymphedema of the right arm. 3. GERD. 4. Diverticulitis. 5. Chronic migraine. 6. Depression. 7. She had MRI evidence of partially empty sella turcica. 8. She has chronic musculoskeletal pain. Problems Addressed with this Encounter and Plan: 1. Patient with grade 3 invasive ductal carcinoma of the right breast, stage IIIC (pT2, pN3a, M0), ER/MI positive and HER-2/zaki nonamplified. She underwent right modified radical mastectomy and left simple mastectomy with axillary sentinel lymph node biopsy on 01/25/2012. She was given adjuvant chemotherapy, completed in May 2012. She was then given prophylactic radiation to the right chest wall, completed in July 2012 to a total dose of 6000 cGy. She began adjuvant hormonal therapy with tamoxifen in August 2012. Her treatment was switched to Femara as of September 2014. As of September 2016 he was put on hold due to increasing fatigue and musculoskeletal pain. Her symptoms eventually were controlled adequately on meloxicam. As of 07/04/2017 she then began further adjuvant hormonal therapy with exemestane 25 mg daily. During follow-up has continued to have some joint pain and some fatigue, but she has been able to tolerate the exemestane with acceptable toxicity. Thus far there has been no evidence of recurrence of the breast cancer. She continues adjuvant hormonal therapy with the exemestane 25 mg daily. I will see her again in 6 months, or sooner as needed. 2. Her treatment has been complicated by chronic lymphedema of the right arm. She was recently seen in the emergency room with increased pain in the right shoulder and arm. She also had a slight fever. She has been showing some improvement on antibiotic therapy with Augmentin for presumed cellulitis. As her symptoms have not completely resolved, she will continue the Augmentin for another 7 days. She is to call and let us know if this is not completely resolved. 3. She is at risk for osteoporosis due to aromatase inhibitor therapy. Her most recent bone density study, from 10/28/2017, still showed normal bone mineral density, but it had decreased compared to the previous study from October 2015. She overdue now for her surveillance DEXA scan, that will be scheduled. Her vitamin D level is being rechecked today, and that result is pending. Signed By: Oliver Brooke M.D. <<Signature on File>>
== END 2020-09-13 13:35 | disposition home or self-care (01) ==
PROVIDERS: PCP Internal Medicine; Visit Provider Internal Medicine Medical Oncology
DX: C50.411 Malignant neoplasm of upper-outer quadrant of right female breast (principal); Z17.0 Estrogen receptor positive status [ER+]; I89.0 Lymphedema, not elsewhere classified; Z90.13 Acquired absence of bilateral breasts and nipples; Z92.21 Personal history of antineoplastic chemotherapy; Z92.3 Personal history of irradiation; Z79.811 Long term (current) use of aromatase inhibitors
CPT/HCPCS: 36415; 82306; 85025; 99214

== ENCOUNTER 2021-02-21 13:53 | Outpatient (CLI) | payer MEDICARE, MEDICAID, SELFPAY ==
--- NOTE | 2021-02-21 13:59 | XR_ITS ---
WS: [id number] DEXA (DUAL ENERGY X-RAY ABSORPTIOMETRY) Bone mineral density was performed using a [email or web address] machine. HISTORY: VITAMIN D DEFICIENCY, asymptomatic MENOPAUSAL STATE COMPARISON: 10/28/2017 Lumbar spine BMD (L1-L4): 1.173 g/cm2 T score: -0.1 Z score: 0.4 Total hip BMD: Left: 1.055 g/cm2. T score: 0.4 Z score: 0.8 Right: 1.030 g/cm2. T score: 0.2 Z score: 0.6 10 year probability of a major osteoporotic fracture is 7%. Compared to the prior study from 10/28/2017. Lumbar spine bone mineral density has decreased by 1.2%. Bilateral hips bone mineral density has decrease by 1.5%. XR/XR DEXA axial skeleton* 12658 IMPRESSION: NORMAL BONE MINERAL DENSITY based upon the WHO classification for females. No significant change in bone mineral density since the most recent exam.
== END 2021-02-21 13:54 | disposition home or self-care (01) ==
PROVIDERS: PCP Internal Medicine; Visit Provider Internal Medicine Medical Oncology
DX: Z78.0 Asymptomatic menopausal state (principal); E55.9 Vitamin D deficiency, unspecified
CPT/HCPCS: 77080

== ENCOUNTER 2021-05-16 15:31 | Outpatient (CLI) | payer MEDICARE, MEDICAID, SELFPAY ==
--- NOTE | 2021-05-20 11:34 | ONC FU_ITS ---
Dr. Brooke Patient Follow-Up Note Patient: Karin Gonzalez Unit #: [id number]: [id number] Dicatated By: Oliver Brooke M.D.Date of Visit:May 16, 2021 Onc Med Follow-up/Prog Note Chief Complaint: Breast cancer. History of Present Illness: This is a 60 year-old woman with grade 3 invasive ductal carcinoma of the right breast, stage IIIC (pT2, pN3a, M0), ER/ID positive and HER-2/zaki nonamplified. She had presented with a palpable right breast mass and axillary lymph nodes. Pre-operatively, she also had suspicious findings on MRI of the left breast. On 01/25/2012 she was taken to OR for modified radical mastectomy on the right and a simple mastectomy with axillary sentinel lymph node biopsy on the left. The right breast specimen showed a 4.4 cm high grade invasive ductal carcinoma with negative margins. However, 14/24 lymph nodes were involved. Prognostic profile showed ER 48%, ID 47%, HER-2/zaki equivocal, FISH not amplified at 1.1. Thus, her disease was stage IIIC (pT2, pN3a,M0). Her left breast pathology was benign. Her surgery was complicated with a right arm intermittent lymphedema. She completed adjuvant chemotherapy on 05/30/2012, although the regimen she received was not available from the records provided. She was prophylactic radiation to the right chest wall, completed on 08/08/2012 to a total dose of 6000 cGy. She began on adjuvant hormonal therapy with tamoxifen in August of 2012. Her LMP was at 48 years of age. She also underwent a delayed bilateral TRAM flap reconstruction on 02/24/2013. She then required revisions on 03/19/2013 and 06/16/2013, including excision of the fat necrosis at the donor site. She transferred her care to [facility] [place] and was first seen by Dr. Hwang on 08/19/2013. She was found to have a significant vitamin D deficiency. DEXA scan was normal in August of 2013. MRI of the brain performed due to ongoing headaches showed no evidence of metastatic disease, however it revealed partially empty sella turcica. TSH was within normal limits. She established care with media strategist. In August of 2013 she underwent an upper endoscopy and colonoscopy, the findings were benign and included gastritis and diverticulosis. On 03/02/2014 there was concerning palpable nodule at 10:00 position of the left breast for which biopsy was recommended. A left breast ultrasound on 03/11/2014 showed a complex fluid collection up to 5 cm. An FNA of the cystic lesion was negative for malignancy. A CT of the chest on 03/26/2014 showed focal area of likely fat necrosis within the left TRAM flap. As per patient, no further intervention was recommended by her plastic surgeon, Dr. Richardson in [place]. Her tamoxifen was continued until September 2014, then switched to Femara on 10/07/2014. CT scans of the chest, abdomen, and pelvis on 09/13/2016 showed no evidence of disease progression in the chest and no evidence of metastatic disease in the abdomen or pelvis. I had seen her for a followup visit on 09/17/2016. She was having increased fatigue and musculoskeletal pain, and I did have her try stopping the Femara, at least temporarily. I had seen her for a follow-up visit on 11/21/2016. She reported only slight interval improvement in her musculoskeletal pain, and she then restarted Femara 2.5 mg daily. On her follow-up visit on 03/11/2017 she complained of increased joint pain, and I had her stop the Femara again. She was seen again for a followup visit on 04/16/2017. She was still having significant joint pain. Her sed rate was mildly elevated. I opted to treat with her prednisone, initially at 10 mg bid for 2 weeks, then tapering to 10 mg daily. She was seen for follow-up again on 05/16/2017. At that point she was feeling somewhat better. Her Femara remained on hold. She continued tapering the prednisone. On her follow-up visit on 06/24/2017 she was feeling better, and at that point she began further adjuvant hormonal therapy with exemestane 25 mg daily. Her other medical illnesses include GERD, diverticulitis, chronic migraine, and depression. She also has had chronic musculoskeletal pain. She is a nonsmoker. INTERIM HISTORY: On 09/05/2020 she was seen in the emergency room with increased pain in the right shoulder and arm. Her chest CT showed evidence of fat necrosis in the left breast/reconstruction, but there was no evidence of metastatic disease and there was no apparent cause for the pain. CT of the right shoulder showed evidence of patulous right shoulder joint capsule but again there was no apparent cause for the pain identified. She also had a slight fever and she thought the underlying problem was cellulitis and she finally did convince them to treat her with antibiotic. At her follow-up visit on 09/13/2020 the cellulitis appeared to be mostly resolved. She continued the exemestane, which she appeared to be tolerating with acceptable toxicity. She is seen for a scheduled visit. She has been feeling pretty good generally, though she says she still gets tired. She has doing housework and childcare. ECOG score is 1. She also complains that she has been having a lot of anxiety, and recently she has been having problems with her teeth, and she has been requiring dental care. Her appetite has been good. She has not had fever. She complains that she sweats all the time. She has sinus drainage and she complains of having mucus in the back of her throat. She does not complain of cough, and she has not been having shortness of breath or chest pain. She has no GI/ complaints other than constipation, which she says keeps getting worse. She still has some joint pain, particularly in her right shoulder. Her hips do not bother her too much as long she does not walk too far. She does get migraine headaches, though she has not had any recently. She has a little bit of numbness/tingling in her hands and feet. Medications: Anoro Ellipta Aerosol Powder, Breath Activated Inhalation daily, CeleXA 1 (20 mg) Tablet Oral daily, Exemestane 1 (25 mg) Tablet Oral daily, Levothyroxine Sodium 1 (75 mcg) Tablet Oral daily, Meloxicam 1 (15 mg) Tablet Oral daily, Multivitamin Adult 1 Tablet Oral daily, Omeprazole 1 (20 mg) Tablet, enteric coated Oral daily, SEROquel 1 Tablet (of 25 mg) Oral PRN, SUMAtriptan Succinate 0.5 Tablet (of 100 mg) Oral PRN, Wellbutrin XL 1 (150 mg) Tablet SR 24 HR Oral daily, Xanax Tablet Oral PRN Allergies: Cipro, pain med, and tape. Vital Signs: Performed on May 16, 2021 15:46 Height - 63.00 in Weight - 200.6 lbs (LOW) BSA - 1.94 sq.m BMI - 35.53 (HIGH) Temperature - 97.4 F (LOW) Pulse - 89 /min Respiration - 18 /min BP - 142/89 mm(hg) (HIGH) O2 Sat - 97 % Pain - 0 Fatigue - 7 Physical Examination: Constitutional - She looks pretty good generally, Eyes - Sclerae nonicteric. Conjunctivae clear, ENMT - No lesions noted in the oral cavity, Hematologic/Lymphatic - No cervical, clavicular, or axillary adenopathy, Respiratory - Lungs are clear with good air movement bilaterally, Cardiovascular - Heart rhythm is regular. There is no murmur, gallop, or rub noted, Abdomen - Soft. Liver and spleen are not enlarged. There is no abdominal mass or ascites noted and there is no inguinal adenopathy, Extremities - There is chronic lymphedema of the right arm. There is no lower extremity edema, Neurologic - No focal neurologic deficits noted. Problem List: 1. Patient with grade 3 invasive ductal carcinoma of the right breast, stage IIIC (pT2, pN3a, M0), ER/ID positive and HER-2/zaki nonamplified. 2. She has chronic lymphedema of the right arm. 3. GERD. 4. Diverticulitis. 5. Chronic migraine. 6. Depression. 7. She had MRI evidence of partially empty sella turcica. 8. She has chronic musculoskeletal pain. Problems Addressed with this Encounter and Plan: 1. Patient with grade 3 invasive ductal carcinoma of the right breast, stage IIIC (pT2, pN3a, M0), ER/ID positive and HER-2/zaki nonamplified. She underwent right modified radical mastectomy and left simple mastectomy with axillary sentinel lymph node biopsy on 01/25/2012. She was given adjuvant chemotherapy, completed in May 2012. She was then given prophylactic radiation to the right chest wall, completed in July 2012 to a total dose of 6000 cGy. She began adjuvant hormonal therapy with tamoxifen in August 2012. Her treatment was switched to Femara as of September 2014. As of September 2016 he was put on hold due to increasing fatigue and musculoskeletal pain. Her symptoms eventually were controlled adequately on meloxicam. As of 07/04/2017 she then began further adjuvant hormonal therapy with exemestane 25 mg daily. During follow-up has continued to have some joint pain and some fatigue, but she has been able to tolerate the exemestane with acceptable toxicity. Thus far there has been no evidence of recurrence of the breast cancer. She continues adjuvant hormonal therapy with the exemestane 25 mg daily. I will see her again in 6 months. 2. Her treatment has been complicated by chronic lymphedema of the right arm. She has had occasional episodes of cellulitis. 3. She is at risk for osteoporosis due to aromatase inhibitor therapy. Her most recent bone density study, from 10/28/2017, still showed normal bone mineral density, but it had decreased compared to the previous study from October 2015. Repeat DEXA scan on 02/21/2021 showed normal bone mineral density, T score -0.1 in the lumbar spine, 0.4 in the left hip, and 0.2 in the right hip. She does not require any treatment, but it does require ongoing monitoring. Signed By: Oliver Brooke M.D. <<Signature on File>>
== END 2021-05-16 15:32 | disposition home or self-care (01) ==
LOC: ONCMED 15:37
PROVIDERS: PCP Internal Medicine; Visit Provider Internal Medicine Medical Oncology
DX: C50.811 Malignant neoplasm of overlapping sites of right female breast (principal); Z17.0 Estrogen receptor positive status [ER+]; Z90.13 Acquired absence of bilateral breasts and nipples; Q82.0 Hereditary lymphedema; K21.9 Gastro-esophageal reflux disease without esophagitis; K57.92 Diverticulitis of intestine, part unspecified, without perforation or abscess without bleeding; G43.809 Other migraine, not intractable, without status migrainosus; F32.9 Major depressive disorder, single episode, unspecified; B02.29 Other postherpetic nervous system involvement; M79.18 Myalgia, other site; Z79.818 Long term (current) use of other agents affecting estrogen receptors and estrogen levels; Z79.811 Long term (current) use of aromatase inhibitors
CPT/HCPCS: 99214

== ENCOUNTER 2021-10-14 09:59 | Emergency (ER) | payer MEDICARE, MEDICAID, SELFPAY ==
[2021-10-14 10:10] VITALS: BP 134/86; PULSE 112; RESP 18; TEMP 37.3; O2SAT 97; BMI 34.7
--- NOTE | 2021-10-14 10:30 | PC.NURSE ---
PT UNABLE TO PROVIDE UA SAMPLE AT THIS TIME D/T USING THE RESTROOM PRIOR TO TRIAGE.
[2021-10-14 10:51] LABS: Basophils # 0.1 10^3/uL (0.0-0.1); Basophils % 0.4 %; Eosinophils # 0.2 10^3/uL (0.0-0.8); Hematocrit 42.9 % (37.0-47.0); Hemoglobin 13.4 g/dL (11.5-15.3); Lymphocytes # 0.8 10^3/uL (0.8-4.8); Lymphocytes % 6.4 %; Mean Corpuscular HGB Conc 31.2 g/dL (30.0-36.0); Mean Corpuscular Hemoglobin 26.6 pg (28.0-34.0); Mean Corpuscular Volume 85.1 fl (81-99); Mean Platelet Volume 9.7 fL (7.4-10.4); Monocytes # 0.4 10^3/uL (0.2-0.9); Monocytes % 3.5 %; Neutrophils # 10.56 10^3/uL (1.8-7.7); Neutrophils % 87.5 %; Nucleated Red Blood Cells % 0 %; Platelet Count 353 10^3/cmm (130-400); Red Blood Count 5.04 10^6/uL (4.1-5.3); Red Cell Distribution Width 14.4 % (12.1-15.1); White Blood Count 12.1 10^3/uL (4.0-10.0)
[2021-10-14] MEDS: sodium chloride 0.9% 1,000 ML 999 ML IV (10:55)
--- NOTE | 2021-10-14 11:05 | ED_ITS ---
HPI - Abdominal Pain General: Chief Complaint: Abdominal Pain Stated Complaint: Abd Pain, says she has diverticulitis Time Seen by Provider: 10/14/21 10:13 History of Present Illness: Patient said she has been nauseated for the last 1 weeks. Then started having some abdominal discomfort last night and is worse today. Said history of reconstruction surgery due to her cancer and this is occurred on her abdomen she also had her gallbladder removed. Patient denies any fever chills. Said she has been having rabbit pellet type poop lately. History of diverticulitis when she started chemotherapy for cancer and this was back in 2017. Associated Symptoms: Reports change in stool character and nausea; Denies chills, fever(s) and vomiting Review of Systems Const: Denies: fever(s), chills or body aches Eyes: Denies: eye discomfort ENMT: Denies: throat pain Card: Denies: chest pain Resp: Denies: dyspnea GI: Reports: abdominal pain, nausea and change in stool character; Denies: vomiting Skin/Breast: Denies: rash Neuro: Denies: headache(s) Psych: Denies: depression or suicidal ideation PFS ED PFSH: Medical History (Updated 10/14/21 @ 12:59 by TONYA Lopez) Acquired lymphedema Anxiety Dental abscess Depression Diverticulitis Gastric ulcer GERD (gastroesophageal reflux disease) Hiatal hernia History of breast cancer in adulthood Lymph node enlargement Scabies Shingles Surgical History History of mastectomy, total Social History Smoking and tobacco status: never smoked Second hand smoke exposure: No Smoking risk assessment/counseling performed?: No Alcohol intake: never Desire information about alcohol rehabilitation?: No Desire information about substance/drug rehabilitation?: No Counseling given: No Physical Exam Const: COMMON NORMALS: no acute distress, patient oriented x3 and alert HENMT: COMMON NORMALS: normocephalic and external ears normal HEAD & SCALP: normocephalic EXTERNAL EAR: Yes external ears normal Eye: COMMON NORMALS: EOMs intact bilaterally Neck/C-Spine: COMMON NORMALS: no JVD Resp: COMMON NORMALS: normal respiratory effort and No use of accessory muscles Cardio: COMMON NORMALS: no JVD GI: AUSCULTATION: Yes Hypoactive bowel sounds present PALPATION: Yes Tenderness to palpation present (GI) (Generalized) Extremity: COMMON NORMALS: normal to inspection and full ROM Neuro: COMMON NORMALS: patient oriented x3 SENSORIUM/ORIENTATION: Yes alert Psych: COMMON NORMALS: mental status grossly normal Skin: COMMON NORMALS: no rashes or lesions noted GENERAL SKIN EXAM: no rashes or lesions noted Course Vital Signs: Vital signs: Vital Signs Temperature 99.2 F 10/14/21 10:10 Pulse Rate 112 H 10/14/21 10:10 Respiratory Rate 17 10/14/21 12:49 Blood Pressure 134/86 10/14/21 10:10 Pulse Oximetry 94 10/14/21 12:49 MDM - Abdominal Pain Medical Decision Making Patient presents with nausea for the last week and abdominal pain especially this morning. Patient has history of diverticulitis she said she felt like that is what is going on. She also has had abdominal surgery for cancer and had some scar tissue laboratory studies EKG were all negative for any concerning findings. He is responding well to pain and antinausea medication CT was negative for any concerning findings. Patient encouraged follow-up primary care provider take medication as directed return if any worsening symptoms. Lab Data : 10/14/21 10:39 10/14/21 10:39 Labs/Radiology: Radiology Impressions Abdomen/Pelvis CT 10/14/21 11:06 IMPRESSION: No acute findings.Non acute findings as described above. Laboratory Results WBC 12.1 10^3/uL (4.0-10.0) H 10/14/21 10:39 RBC 5.04 10^6/uL (4.1-5.3) 10/14/21 10:39 Hgb 13.4 g/dL (11.5-15.3) 10/14/21 10:39 Hct 42.9 % (37.0-47.0) 10/14/21 10:39 MCV 85.1 fl (81-99) 10/14/21 10:39 MCH 26.6 pg (28.0-34.0) L 10/14/21 10:39 MCHC 31.2 g/dL (30.0-36.0) 10/14/21 10:39 RDW 14.4 % (12.1-15.1) 10/14/21 10:39 Plt Count 353 10^3/cmm (130-400) 10/14/21 10:39 MPV 9.7 fL (7.4-10.4) 10/14/21 10:39 Neut % (Auto) 87.5 % 10/14/21 10:39 Lymph % (Auto) 6.4 % 10/14/21 10:39 [place] % (Auto) 3.5 % 10/14/21 10:39 Eos % (Auto) 2.0 % 10/14/21 10:39 Baso % (Auto) 0.4 % 10/14/21 10:39 Neut # (Auto) 10.56 10^3/uL (1.8-7.7) H 10/14/21 10:39 Lymph # (Auto) 0.8 10^3/uL (0.8-4.8) 10/14/21 10:39 [place] # (Auto) 0.4 10^3/uL (0.2-0.9) 10/14/21 10:39 Eos # (Auto) 0.2 10^3/uL (0.0-0.8) 10/14/21 10:39 Baso # (Auto) 0.1 10^3/uL (0.0-0.1) 10/14/21 10:39 Nucleated RBC % (auto) 0 % 10/14/21 10:39 Nucleated RBCs # 0.0 /100WBC 10/14/21 10:39 Sodium 136 mmol/L (136-145) 10/14/21 10:39 Potassium 4.4 mmol/L (3.5-5.1) 10/14/21 10:39 Chloride 101 mmol/L (98-107) 10/14/21 10:39 Carbon Dioxide 23 mmol/L (22-29) 10/14/21 10:39 Anion Gap 16.4 (5-19) 10/14/21 10:39 BUN 21 mg/dL (8-23) 10/14/21 10:39 Creatinine 0.8 mg/dL (0.5-0.9) 10/14/21 10:39 GFR Calculation 72.7 mL/min (90-130) L 10/14/21 10:39 Glucose 108 mg/dL (65-115) 10/14/21 10:39 Calculated Osmolality 286 mOsm/kg (285-295) 10/14/21 10:39 Calcium 9.3 mg/dL (8.5-10.5) 10/14/21 10:39 Total Bilirubin 0.3 mg/dL (0.15-1.2) 10/14/21 10:39 AST 16 U/L (0-32) 10/14/21 10:39 ALT 15 U/L (0-33) 10/14/21 10:39 Alkaline Phosphatase 97 IU/L (35-105) 10/14/21 10:39 Total Protein 7.9 g/dL (6.6-8.7) 10/14/21 10:39 Albumin 4.1 g/dL (3.5-5.2) 10/14/21 10:39 Globulin 3.8 g/dL (1.3-4.6) 10/14/21 10:39 Lipase 34 U/L (13-60) 10/14/21 10:39 Urine Color Yellow (Yellow) 10/14/21 12:45 Urine Appearance Clear (CLEAR) 10/14/21 12:45 Urine pH 7 (5-7) 10/14/21 12:45 Ur Specific [place] 1.005 (1.005-1.030) 10/14/21 12:45 Urine Protein Neg (Negative) 10/14/21 12:45 Urine Glucose (UA) Norm (Normal) 10/14/21 12:45 Urine Ketones Negative (Negative) 10/14/21 12:45 Urine Blood Neg (Negative) 10/14/21 12:45 Urine Nitrate Negative (Negative) 10/14/21 12:45 Urine Bilirubin Neg (Negative) 10/14/21 12:45 Urine Urobilinogen Norm mg/dL (Negative) 10/14/21 12:45 Ur Leukocyte Esterase Negative (Negative) 10/14/21 12:45 Discharge Plan Discharge Patient Disposition: Home Clinical Impression: Abdominal pain Condition: Stable Prescriptions: New Augmentin 500-125 mg tablet 1 tab PO BID Qty: 14 0RF ondansetron HCl 4 mg tablet 4 mg PO TID PRN (Reason: nausea and vomiting) 3 Days Qty: 9 0RF tramadol 50 mg tablet 50 mg PO TID PRN (Reason: pain) Qty: 7 0RF No Action bupropion HCl 300 mg tablet extended release 24 hr 300 mg PO QAM 0RF levothyroxine 75 mcg capsule 75 mcg PO DAILY 0RF omeprazole 20 mg capsule,delayed release(DR/EC) 20 mg PO BID 0RF meloxicam 15 mg tablet 15 mg PO DAILY 0RF citalopram [Celexa] 20 mg tablet 20 mg PO DAILY 0RF montelukast [Singulair] 10 mg tablet 10 mg PO DAILY 0RF exemestane 25 mg tablet 25 mg PO DAILY 0RF Rx Instructions: must administer after a meal Anoro Ellipta 62.5-25 mcg/actuation blister with device 1 inh INHALATION DAILY 0RF alprazolam 0.5 mg tablet 0.5 mg PO BID 0RF valacyclovir 1 gram tablet 1,000 mg PO Q8H 7 Days Qty: 21 0RF hydrocodone-acetaminophen 5-325 mg tablet 1 tab PO .q4-6 hours PRN (Reason: pain) 5 Days Qty: 30 0RF ondansetron 4 mg tablet,disintegrating 4 mg PO Q6H PRN (Reason: nausea and vomiting) Qty: 14 0RF Discharge Orders: Discharge ED (Routine); Ordered 10/14/21 Ordered By: Kevin Cannon Referrals: Oliver Rae DO [Primary Care Provider] - Discharge Diet: Advance as tolerated Discharge Activity: Increase activity as tolerated Patient Instructions: Abdominal Pain (ED), Opioid Safety Activity Restrictions/Additional Instructions: Follow-up with medical provider as directed. Take medications as prescribed. Return to the ER or your medical provider if condition worsens. Please read and understand discharge instructions. If any questions ask please. Coding Level of Care Code ED Malt [employer]aster for eHnry Fwd Exam Comprehensive
--- NOTE | 2021-10-14 11:06 | CTR_ITS ---
PROCEDURE INFORMATION: Exam: CT Abdomen And Pelvis With Contrast Exam date and time: 10/14/2021 11:53 AM Age: 60 years old Clinical indication: Abdominal pain; Prior surgery; Surgery type: Gb; Additional info: History of diverticulitis , abdominal pain, TECHNIQUE: Imaging protocol: Computed tomography of the abdomen and pelvis with contrast. Radiation optimization: All CT scans at this facility use at least one of these dose optimization techniques: automated exposure control; mA and/or kV adjustment per patient size (includes targeted exams where dose is matched to clinical indication); or iterative reconstruction. Contrast material: OMNI 300; Contrast volume: 95 ml; Contrast route: INTRAVENOUS (IV); COMPARISON: CT Chest/Abdomen/Pelvis wwo 09/13/2016 1:43 PM RADIATION DOSE METRICS: Total DLP (mGy-cm): 1645.22 FINDINGS: Diaphragm: Small hiatal hernia. Liver: Normal. No mass. Gallbladder and bile ducts: The gallbladder has been removed. Mild prominence of the intrahepatic and extrahepatic biliary ducts. This can be seen after cholecystectomy. No radiopaque retained stones are seen. Pancreas: Normal. No ductal dilation. Spleen: Normal. No splenomegaly. Adrenal glands: Normal. No mass. Kidneys and ureters: Normal. No hydronephrosis. Stomach and bowel: There is diverticulosis of the colon without evidence of diverticulitis. Moderate stool burden. Appendix: No evidence of appendicitis. Intraperitoneal space: Unremarkable. No free air. No significant fluid collection. Vasculature: Unremarkable. No abdominal aortic aneurysm. Lymph nodes: Unremarkable. No enlarged lymph nodes. Urinary bladder: Unremarkable as visualized. Reproductive: Unremarkable as visualized. Bones/joints: Unremarkable. No acute fracture. Soft tissues: There are postoperative changes in the ventral abdominal wall. Diastasis of the rectus abdominus. There are small ventral abdominal hernias containing fat. Small bowel loops extend to the ostia of both hernias with no evidence for obstruction or strangulation. CT/CT abdomen pelvis w con* [id number] IMPRESSION: No acute findings.Non acute findings as described above.
[2021-10-14 11:08] LABS: Alanine Aminotransferase 15 U/L (0-33); Albumin Level 4.1 g/dL (3.5-5.2); Alkaline Phosphatase 97 IU/L (35-105); Anion Gap 16.4 (5-19); Aspartate Amino Transferase 16 U/L (0-32); Blood Urea Nitrogen 21 mg/dL (8-23); Calcium 9.3 mg/dL (8.5-10.5); Carbon Dioxide 23 mmol/L (22-29); Chloride 101 mmol/L (98-107); Globulin 3.8 g/dL (1.3-4.6); Glomerular Filtration Rate 72.7 mL/min (90-130); Glucose 108 mg/dL (65-115); Lipase 34 U/L (13-60); Osmolality Calculated 286 mOsm/kg (285-295); Potassium 4.4 mmol/L (3.5-5.1); Sodium 136 mmol/L (136-145); Total Bilirubin 0.3 mg/dL (0.15-1.2); Total Protein 7.9 g/dL (6.6-8.7)
[2021-10-14 11:26] VITALS: RESP 16; O2SAT 95
[2021-10-14] MEDS: morphine 4 mg/mL SDV 1 mL IVP (11:26)
[2021-10-14] MEDS: ondansetron 2 mg/ML SDV 2 mL 4 MG IVP (11:26)
[2021-10-14] MEDS: iohexol 300 mg/mL 100 mL Btl IV (11:55)
[2021-10-14 12:49] VITALS: RESP 17; O2SAT 94
[2021-10-14] MEDS: HYDROmorphone 1 mg/mL INJ 1 mL 0.5 MG IVP (12:49)
--- NOTE | 2021-10-14 12:54 | ECG_ITS ---
[facility] Test Date: 2021-10-14 Pat Name: Karin Goznalez Department: Room: Gender: Female Deputy Director Of Nursing: : 1960 Requested By: Kevin Cannon Order Number: [id number] Roberta MD: Ken Amaral M.D. Measurements Intervals [place] Rate: 99 P: 26 [place]: 122 QRS: 42 QRSD: 84 T: 28 QT: 369 QTc: 474 Interpretive Statements SINUS RHYTHM No previous ECG available for comparison Electronically Signed On 10-15-2021 8:13:31 CDT by Ken Amaral M.D. [id number]
[2021-10-14 13:07] LABS: Add Urine Microscopic? NO; Charge for UA Resulting for Rev
[2021-10-14 13:10] LABS: Blood Urine Neg (Negative); Glucose Urine UA Norm (Normal); Ketones Urine Negative (Negative); Protein Urine Neg (Negative); Specific Gravity, Urine 1.005 (1.005-1.030); Urine Appearance Clear (CLEAR); Urine Color Yellow (Yellow); pH Urine 7 (5-7)
[2021-10-14 13:11] LABS: Bilirubin Urine Neg (Negative); Leukocyte Esterase Urine Negative (Negative); Nitrate Urine Negative (Negative); Urobilinogen Urine Norm (Negative)
[2021-10-14 13:56] VITALS: BP 114/75; PULSE 100; RESP 15; TEMP 37.2; O2SAT 94
[2021-10-14 13:58] VITALS: BP 114/75; PULSE 100; RESP 15; TEMP 37.2; O2SAT 94
== END 2021-10-14 13:50 | disposition home or self-care (01) ==
PROVIDERS: Emergency Provider Nurse Practitioner Family; PCP Internal Medicine
DX: R10.9 Unspecified abdominal pain (principal); C50.919 Malignant neoplasm of unspecified site of unspecified female breast; Z90.10 Acquired absence of unspecified breast and nipple; Z79.811 Long term (current) use of aromatase inhibitors
CPT/HCPCS: 74177; 80053; 81003; 83690; 85025; 93005; 96361; 96374; 96375; 99284; J1170; J2270; J2405; J7030; Q9967

== ENCOUNTER → 2021-11-27 10:03 | Outpatient (BNVA) | payer MEDICARE, MEDICAID, SELFPAY | PROVIDERS: PCP Internal Medicine; Visit Provider Surgery | DX: Z87.19 Personal history of other diseases of the digestive system (principal); K56.699 Other intestinal obstruction unspecified as to partial versus complete obstruction; K43.9 Ventral hernia without obstruction or gangrene | CPT/HCPCS: 99213 ==

== ENCOUNTER 2021-12-19 14:09 | Oncology outpatient (recurring) (ONCR) | payer MEDICARE, MEDICAID, SELFPAY | END 2021-12-19 23:59 | disposition home or self-care (01) | PROVIDERS: PCP Internal Medicine; Visit Provider Internal Medicine Medical Oncology | DX: C50.411 Malignant neoplasm of upper-outer quadrant of right female breast (principal); Z17.0 Estrogen receptor positive status [ER+]; Z90.13 Acquired absence of bilateral breasts and nipples; M25.50 Pain in unspecified joint; R53.83 Other fatigue; Z79.818 Long term (current) use of other agents affecting estrogen receptors and estrogen levels | CPT/HCPCS: 99214 ==

== ENCOUNTER 2022-01-18 07:22 | Day surgery (SDC) | payer MEDICARE, MEDICAID, SELFPAY ==
[2022-01-16 13:08] VITALS: BMI 35.4
[2022-01-18 07:49] VITALS: BP 159/96; PULSE 88; RESP 18; TEMP 36.1; O2SAT 96
[2022-01-18] MEDS: sodium chloride 0.9% 1,000 ML 30 ML IV (07:57)
--- NOTE | 2022-01-18 08:33 | P.ANESASSM_ITS ---
Pre-Anesthetic Assessment Height/Weight: Height 1.6 m Weight 90.718 kg Temp Pulse Resp BP Pulse Ox O2 Del Method 97 F L 88 18 159/96 96 01/18/22 07:49 01/18/22 07:49 01/18/22 07:49 01/18/22 07:49 01/18/22 07:49 01/18/22 07:49 Operation Date: 01/18/22 09:00 Proposed Procedures p Colonoscopy(Not Applicable) - Arron Contreras DO Familial anesthetic complications: none Was Beta Gabriel taken within 24 hours: N/A Was Clonidine taken within 24 hours: N/A Last intake: Intake Last Liquid Date 01/17/22 Last Liquid Time 00:00 Last Solid Date 01/16/22 Last Solid Time 00:00 Social No alcohol and No tobacco Exam alert, oriented x 3, clear to auscultation bilaterally and regular rate & rhythm Airway Submandibular: within normal limits Cervical ROM: within normal limits Mallampati: Class II Dentition: full GI Gastroesophageal Reflux Disease Metabolic Morbid Obesity and Thyroid Disease Anesthetic Plan ASA status: 3 Anesthesia: MAC Medications/Allergies Home Medications Medication Instructions Recorded Confirmed Last Taken Type alprazolam 0.5 mg tablet 0.5 mg PO BID 01/05/20 01/18/22 01/04/22 History bupropion HCl 300 mg 24 hr tablet, 300 mg PO QAM 01/05/20 01/18/22 01/16/22 History extended release citalopram 20 mg tablet (Celexa) 20 mg PO DAILY 01/05/20 01/18/22 01/16/22 History exemestane 25 mg tablet 25 mg PO DAILY 01/05/20 01/18/22 01/11/22 History levothyroxine 75 mcg capsule 75 mcg PO DAILY 01/05/20 01/18/22 01/16/22 History meloxicam 15 mg tablet 15 mg PO DAILY 01/05/20 01/18/22 01/16/22 History montelukast 10 mg tablet 10 mg PO DAILY 01/05/20 01/18/22 01/16/22 History (Singulair) umeclidinium 62.5 mcg-vilanterol 1 inh inhalation DAILY 01/05/20 01/18/22 01/18/22 History 25 mcg/actuation powdr for inhalation (Anoro Ellipta) ondansetron 4 mg disintegrating 4 mg PO Q6H PRN nausea and 09/05/20 01/18/22 Unknown Rx tablet vomiting #14 tabs omeprazole 20 mg capsule,delayed 20 mg PO BID PRN Acid Reflux 12/19/21 01/18/22 01/17/22 History release Allergies Allergy/AdvReac Type Severity Reaction Status Date / Time ciprofloxacin [From Cipro] Allergy Intermediate sick Verified 12/26/21 16:21 acetaminophen [From Percocet] Allergy vomit Verified 12/26/21 16:21 adhesive tape Allergy rash Verified 12/26/21 16:21 gabapentin Allergy makes Verified 12/26/21 16:21 loopy/Ill hydrocodone [From [place]] Allergy upset Verified 12/26/21 16:21 GI/vomit oxycodone [From Percocet] Allergy vomit Verified 12/26/21 16:21 tramadol Allergy nause/vomit Verified 12/26/21 16:21 Current Medications Generic Name Dose Route Start Last Admin Trade Name Freq PRN Reason Stop Dose Admin Sodium Chloride 1,000 mls @ 30 mls/hr 01/18/22 07:45 01/18/22 07:57 Sodium Chloride 0.9% IV 01/19/22 07:44 30 mls/hr .Q24H LAUREN Administration PFSH Anesthesia Medical History (Updated 12/26/21 @ 16:21 by Carmela Hauser) Acquired lymphedema Anxiety Anxiety Breast cancer Chronic migraine Depression Diverticulitis GERD (gastroesophageal reflux disease) Hiatal hernia History of diverticulitis History of gastric ulcer Hx of breast cancer Sigmoid stricture Thyroid disease Ventral hernia Vitamin D deficiency Surgical History (Updated 12/26/21 @ 16:21 by Carmela Hauser) History of bilateral mastectomy (01/25/12) Modified right mastectomy and left simple mastectomy with axillary sentinel lymph node biopsy History of cholecystectomy History of esophagogastroduodenoscopy (EGD) Age 58 History of permanent cardiac pacemaker placement History of reconstruction of both breasts (2012) Delayed TRAM flap breast reconstruction bilaterally Hx of bilateral mastectomy Hx of cholecystectomy Hx of colonoscopy Age 58 Family History (System 12/26/21 @ 16:21 by Carmela Hauser) Mother Cancer colon Father Cancer Grandmother Cancer Brother Cancer Other Hyperlipidemia Denies family history of Diabetes CAD (coronary artery disease) Clotting disorder Dementia Psychiatric illness Chronic kidney disease (CKD) Suicide Anesthesia complication Bleeding disorder Lung disease Hypertension Stroke Social History (System 12/26/21 @ 16:21 by Carmela Hauser) Smoking and tobacco status: never smoked Second hand smoke exposure: No Smoking risk assessment/counseling performed?: No Alcohol intake: current Alcohol intake frequency: few times a week Alcohol type: wine Desire information about alcohol rehabilitation?: No Desire information about substance/drug rehabilitation?: No Counseling given: No Data Anesthesia Cardiac Studies: No Data to Display
--- NOTE | 2022-01-18 09:26 | P.HP_ITS ---
Providers/Chief Complaint Primary Care Provider: Oliver Rae DO Chief Complaint: Diverticulitis History of Present Illness Karin Gonzalez is a 61 year old female that had diverticulitis approximately 2 months ago. She also has a known sigmoid stricture. She is here for colonoscopy Review of Systems General: Reports: 10 or more systems reviewed and unremarkable except in HPI and below Medications/Allergies Home Medications Medication Instructions Recorded Confirmed Last Taken Type alprazolam 0.5 mg tablet 0.5 mg PO BID 01/05/20 01/18/22 01/04/22 History bupropion HCl 300 mg 24 hr tablet, 300 mg PO QAM 01/05/20 01/18/22 01/16/22 History extended release citalopram 20 mg tablet (Celexa) 20 mg PO DAILY 01/05/20 01/18/22 01/16/22 History exemestane 25 mg tablet 25 mg PO DAILY 01/05/20 01/18/22 01/11/22 History levothyroxine 75 mcg capsule 75 mcg PO DAILY 01/05/20 01/18/22 01/16/22 History meloxicam 15 mg tablet 15 mg PO DAILY 01/05/20 01/18/22 01/16/22 History montelukast 10 mg tablet 10 mg PO DAILY 01/05/20 01/18/22 01/16/22 History (Singulair) umeclidinium 62.5 mcg-vilanterol 1 inh inhalation DAILY 01/05/20 01/18/22 01/18/22 History 25 mcg/actuation powdr for inhalation (Anoro Ellipta) ondansetron 4 mg disintegrating 4 mg PO Q6H PRN nausea and 09/05/20 01/18/22 Unknown Rx tablet vomiting #14 tabs omeprazole 20 mg capsule,delayed 20 mg PO BID PRN Acid Reflux 12/19/21 01/18/22 01/17/22 History release Allergies Allergy/AdvReac Type Severity Reaction Status Date / Time ciprofloxacin [From Cipro] Allergy Intermediate sick Verified 12/26/21 16:21 acetaminophen [From Percocet] Allergy vomit Verified 12/26/21 16:21 adhesive tape Allergy rash Verified 12/26/21 16:21 gabapentin Allergy makes Verified 12/26/21 16:21 loopy/Ill hydrocodone [From [place]] Allergy upset Verified 12/26/21 16:21 GI/vomit oxycodone [From Percocet] Allergy vomit Verified 12/26/21 16:21 tramadol Allergy nause/vomit Verified 12/26/21 16:21 PFSH Acute PFSH: Medical History Acquired lymphedema Anxiety Anxiety Breast cancer Chronic migraine Depression Diverticulitis GERD (gastroesophageal reflux disease) Hiatal hernia History of diverticulitis History of gastric ulcer Hx of breast cancer Sigmoid stricture Thyroid disease Ventral hernia Vitamin D deficiency Surgical History History of bilateral mastectomy (01/25/12) Modified right mastectomy and left simple mastectomy with axillary sentinel lymph node biopsy History of cholecystectomy History of esophagogastroduodenoscopy (EGD) Age 58 History of permanent cardiac pacemaker placement History of reconstruction of both breasts (2012) Delayed TRAM flap breast reconstruction bilaterally Hx of bilateral mastectomy Hx of cholecystectomy Hx of colonoscopy Age 58 Family History Mother Cancer colon Father Cancer Grandmother Cancer Brother Cancer Other Hyperlipidemia Denies family history of Diabetes CAD (coronary artery disease) Clotting disorder Dementia Psychiatric illness Chronic kidney disease (CKD) Suicide Anesthesia complication Bleeding disorder Lung disease Hypertension Stroke Social History Smoking and tobacco status: never smoked Second hand smoke exposure: No Smoking risk assessment/counseling performed?: No Alcohol intake: current Alcohol intake frequency: few times a week Alcohol type: wine Desire information about alcohol rehabilitation?: No Desire information about substance/drug rehabilitation?: No Counseling given: No Vitals/I&O/Wt Last Vital Signs Temp 97 F L 01/18/22 07:49 Pulse 88 01/18/22 07:49 Resp 18 01/18/22 07:49 BP 159/96 01/18/22 07:49 Pulse Ox 96 01/18/22 07:49 O2 Del Method 01/18/22 07:49 Weight last 48 hrs Weight 200 lb Physical Exam Narrative: General : Patient is well developed , no acute distress, oriented x3 Head : Normal cephalic, a-traumatic. Ears : Pinnae and external canal are normal. Hearing is normal. Eyes : PERRLA, Sclera and injection are normal. No conjunctival discharge. Nose : Mucous membranes are without erythema. Throat : buccal mucosa is normal, gums are without significant recession or hypertrophy. Lungs : Equal chest rise bilaterally, no use of accessory muscles, trachea is midline. Cor : Rate and rhythm are normal. Abdomen : Soft, ND, NT, no g/r/m Extremities : No edema, no cyanosis or clubbing, dorsalis pedis pulses are present bilaterally, non-tender to palpation of calves. Upper extremities are normal bilaterally. Back : non-tender to palpation, no CVA tenderness. Neuro : CN II - XII intact, Upper and lower extremities have equal and full strength A&P Assessment and plan (1) History of diverticulitis: Status: Acute (2) Sigmoid stricture: Status: Acute Plan Colonoscopy The risks and benefits of the procedure, including bleeding, infection, intestinal perforation requiring surgery, missed lesion, or explained to the patient. He is understanding of the risks and wishes to proceed. Attestations Medical Necessity Statement*: Patient will be discharged home after the procedure Coding Level of Care Code Acute Distance Education Director for jagruti Gonzalez Diagnoses History of diverticulitis Z87.19 Sigmoid stricture K56.699
[2022-01-18 09:53] VITALS: BP 128/95; PULSE 98; RESP 16; TEMP 36.6; O2SAT 92
[2022-01-18 10:04] VITALS: BP 116/82; PULSE 89; RESP 16; TEMP 36.7; O2SAT 93
--- NOTE | 2022-01-18 13:37 | ANE.PACU2 ---
Inpatient post-anesthesia follow up: Airway intact: Yes Vital signs: Temperature 98.1 F Pulse Rate 89 Respiratory Rate 16 Blood Pressure 116/82 Pulse Oximetry 93 Oxygen Delivery Me thod Room Air Oxygen Flow Rate Fraction of Inspir ed Oxygen Hydration adequate: Yes Nausea and vomiting: No Pain level: 1 Mental status: Baseline
== END 2022-01-18 10:45 | disposition home or self-care (01) ==
PROVIDERS: PCP Internal Medicine; Visit Provider Surgery
PROC: 0DJD8ZZ Inspection of Lower Intestinal Tract, Via Natural or Artificial Opening Endoscopic (ICD-10-PCS; CPT 45378; principal; 2022-01-18 09:00)
DX: Z87.19 Personal history of other diseases of the digestive system (principal); K57.30 Diverticulosis of large intestine without perforation or abscess without bleeding; K56.699 Other intestinal obstruction unspecified as to partial versus complete obstruction; F41.9 Anxiety disorder, unspecified; Z85.3 Personal history of malignant neoplasm of breast; F32.A Depression, unspecified; K21.9 Gastro-esophageal reflux disease without esophagitis; Z87.11 Personal history of peptic ulcer disease; E66.01 Morbid (severe) obesity due to excess calories; Z68.35 Body mass index [BMI] 35.0-35.9, adult
CPT/HCPCS: 45378; J2405; J2704; J7030

== ENCOUNTER 2022-06-26 12:57 | Oncology outpatient (recurring) (ONCR) | payer MEDICARE, MEDICAID, SELFPAY | END 2022-07-17 23:59 | disposition home or self-care (01) | PROVIDERS: PCP Internal Medicine; Visit Provider Internal Medicine Medical Oncology | DX: C50.811 Malignant neoplasm of overlapping sites of right female breast (principal); Z17.0 Estrogen receptor positive status [ER+]; Z90.13 Acquired absence of bilateral breasts and nipples; R53.0 Neoplastic (malignant) related fatigue; M25.59 Pain in other specified joint; M54.32 Sciatica, left side; Z79.818 Long term (current) use of other agents affecting estrogen receptors and estrogen levels; Z79.899 Other long term (current) drug therapy; Z92.3 Personal history of irradiation | CPT/HCPCS: 72170; 99214 ==

== ENCOUNTER 2023-07-11 10:30 | Oncology outpatient (recurring) (ONCR) | payer MEDICARE, MEDICAID, SELFPAY ==
[2023-07-11 10:51] VITALS: BP 135/89; PULSE 80; RESP 18; TEMP 36.5; O2SAT 98
[2023-07-11 10:55] LABS: Basophils # 0.1 10^3/uL (0.0-0.1); Basophils % 0.7 %; Eosinophils # 0.3 10^3/uL (0.0-0.8); Eosinophils % 2.4 %; Hematocrit 39.8 % (36-47); Lymphocytes # 2.6 10^3/uL (0.8-4.8); Lymphocytes % 24.1 %; Mean Corpuscular HGB Conc 32.2 g/dL (30-55); Mean Corpuscular Hemoglobin 27.6 pg (27-33); Mean Platelet Volume 10.1 fL (7.4-10.4); Monocytes # 0.7 10^3/uL (0.2-0.9); Monocytes % 6.3 %; Neutrophils % 66.2 %; Nucleated Red Blood Cells % 0 %; Platelet Count 289 10^3/cmm (157-399); Red Blood Count 4.63 10^6/uL (3.85-5.65); Red Cell Distribution Width 15.1 % (12.1-15.1); White Blood Count 10.88 10^3/uL (3.29-11.43)
[2023-07-11 11:10] LABS: Alanine Aminotransferase 15 U/L (0-33); Alkaline Phosphatase 117 U/L (35-105); Anion Gap 16.4 (5-19); Aspartate Amino Transferase 17 U/L (0-32); Blood Urea Nitrogen 14 mg/dL (8-23); Calcium 9.6 mg/dL (8.5-10.5); Carbon Dioxide 23 mmol/L (22-29); Chloride 104 mmol/L (98-107); Globulin 3.1 g/dL (1.3-4.6); Glomerular Filtration Rate 72.2 mL/min (90-130); Glucose 106 mg/dL (65-115); Osmolality Calculated 289 mOsm/kg (285-295); Potassium 4.4 mmol/L (3.5-5.1); Sodium 139 mmol/L (136-145); Total Bilirubin 0.2 mg/dL (0.15-1.2); Total Protein 7.1 g/dL (6.6-8.7)
[2023-07-11 11:25] LABS: Slide Review Slide Review Perform
== END 2023-07-17 23:59 | disposition home or self-care (01) ==
PROVIDERS: Internal Medicine; PCP Internal Medicine; Visit Provider Internal Medicine
DX: C50.411 Malignant neoplasm of upper-outer quadrant of right female breast (principal); Z78.0 Asymptomatic menopausal state; Z79.899 Other long term (current) drug therapy
CPT/HCPCS: 36415; 80053; 85025; 99213

== ENCOUNTER 2023-07-18 13:16 | Outpatient (CLI) | payer MEDICARE, MEDICAID, SELFPAY ==
--- NOTE | 2023-07-18 13:30 | XR_ITS ---
WS: [id number] DEXA (DUAL ENERGY X-RAY ABSORPTIOMETRY) Bone mineral density was performed using a [employer] machine. HISTORY: post menopausal COMPARISON: 02/21/2021 Lumbar spine BMD (L1-L4): 1.141 g/cm2 T score: -0.3 Z score: 0.6 Total hip BMD: Left: 1.030 g/cm2. T score: 0.2 Z score: 0.9 Right: 0.999 g/cm2. T score: -0.1 Z score: 0.7 10 year probability of a major osteoporotic fracture is 11.9%. Compared to the prior study from 02/21/2021. Lumbar spine bone mineral density has decreased by 2.7%. Bilateral hips bone mineral density has decreased by 2.8%. IMPRESSION: NORMAL BONE MINERAL DENSITY based upon the WHO classification for females. Significant decrease in bone mineral density within the lumbar spine and hips since the prior study.
== END 2023-07-18 13:17 | disposition home or self-care (01) ==
LOC: RAD 13:17
PROVIDERS: PCP Internal Medicine; Visit Provider Internal Medicine
DX: Z78.0 Asymptomatic menopausal state (principal)
CPT/HCPCS: 77080

== ENCOUNTER → 2023-11-05 13:43 | Outpatient (BNVA) | payer MEDICARE, MEDICAID, SELFPAY | PROVIDERS: PCP Nurse Practitioner Family; Visit Provider Nurse Practitioner Family | DX: J42 Unspecified chronic bronchitis (principal); J22 Unspecified acute lower respiratory infection | CPT/HCPCS: 71046 ==

== ENCOUNTER 2024-05-19 13:47 | Oncology outpatient (recurring) (ONCR) | payer MEDICARE, MEDICAID, SELFPAY ==
--- NOTE | 2024-05-19 13:45 | CTR_ITS ---
PROCEDURE INFORMATION: Exam: CT Chest With Contrast; Diagnostic Exam date and time: 05/19/2024 2:16 PM Age: 63 years old Clinical indication: Cough and shortness of breath; Prior surgery; Surgery date: 6+ months; Surgery type: Bilateral mastectomy; Patient HX: HX of breast cancer; Additional info: J42 - unspecified chronic bronchitis TECHNIQUE: Imaging protocol: Diagnostic computed tomography of the chest with contrast. Radiation optimization: All CT scans at this facility use at least one of these dose optimization techniques: automated exposure control; mA and/or kV adjustment per patient size (includes targeted exams where dose is matched to clinical indication); or iterative reconstruction. Contrast material: OMNI 350; Contrast volume: 100 ml; Contrast route: INTRAVENOUS (IV); COMPARISON: CT chest w con* [id number] 09/05/2020 2:59 AM RADIATION DOSE METRICS: Total DLP (mGy-cm): 360.67 FINDINGS: Lungs: There is a 3 mm nodule involving the medial right upper lobe anteriorly (series 4, image 21) unchanged when compared to prior exam. Pleural spaces: Unremarkable. No pneumothorax. No pleural effusion. Heart: Unremarkable. No cardiomegaly. No pericardial effusion. Lymph nodes: There are a few small mediastinal lymph nodes. There is a slightly enlarged right hilar lymph node measuring 13 mm in size. There is a 2nd right hilar node measuring 9-10 mm in size. These nodes were not present on prior exam. No enlarged axillary nodes are appreciated. Vasculature: The thoracic aorta is normal in caliber without aneurysm or dissection. No calcified plaque is noted involving the aorta or coronary vessels. Diaphragm: There is a [id number] hiatal hernia. Liver: There is diffuse fatty infiltration of the liver. The liver is otherwise normal. Gallbladder and biliary ducts: There are surgical clips within the gallbladder fossa. Bones/joints: Unremarkable. No acute fracture. Soft tissues: There are postoperative changes status post bilateral mastectomies. Fat necrosis noted on the left unchanged. CT/CT chest w con* [id number] IMPRESSION: 1. Mildly enlarged right hilar lymph nodes. Exact etiology is uncertain. Follow-up in 3-6 months may be of benefit to document stability. 2. Hchxcmkr-yj-pnbcp hiatal hernia. 3. 3 mm noncalcified nodule involving the medial right upper lobe unchanged dating back to 09/05/2020.
[2024-05-19] MEDS: iohexol 350 mg/mL 500 mL Btl (per mL) IV (14:23)
[2024-05-19 14:27] LABS: Blood Urea Nitrogen 19 mg/dL (8-23); Glomerular Filtration Rate 49.8 mL/min (90-130)
== END 2024-06-16 23:59 | disposition home or self-care (01) ==
LOC: RAD 13:51 → ONCMED 05-20 10:56
PROVIDERS: PCP Nurse Practitioner Family; Visit Provider Nurse Practitioner Family
DX: C50.411 Malignant neoplasm of upper-outer quadrant of right female breast (principal); Z78.0 Asymptomatic menopausal state; Z79.899 Other long term (current) drug therapy; J42 Unspecified chronic bronchitis; Z77.22 Contact with and (suspected) exposure to environmental tobacco smoke (acute) (chronic)
CPT/HCPCS: 71260; 82565; 84520

== ENCOUNTER 2024-07-08 12:11 | Oncology outpatient (recurring) (ONCR) | payer MEDICARE, MEDICAID, SELFPAY ==
[2024-07-08 12:26] LABS: Basophils % 0.2 %; Eosinophils % 0.1 %; Hematocrit 38.6 % (36-47); Lymphocytes # 1.9 10^3/uL (0.8-4.8); Lymphocytes % 12.4 %; Mean Corpuscular HGB Conc 31.6 g/dL (30-55); Mean Corpuscular Hemoglobin 27.7 pg (27-33); Mean Corpuscular Volume 87.5 fl (85-98); Mean Platelet Volume 9.4 fL (7.4-10.4); Monocytes # 0.7 10^3/uL (0.2-0.9); Monocytes % 4.6 %; Neutrophils # 12.35 10^3/uL (1.8-7.7); Neutrophils % 82.1 %; Nucleated Red Blood Cells % 0 %; Platelet Count 366 10^3/cmm (157-399); Red Blood Count 4.41 10^6/uL (3.85-5.65); Red Cell Distribution Width 14.2 % (12.1-15.1); White Blood Count 15.03 10^3/uL (3.29-11.43)
[2024-07-08 12:49] LABS: Alanine Aminotransferase 13 U/L (0-33); Albumin Level 4.2 g/dL (3.5-5.2); Alkaline Phosphatase 83 U/L (35-105); Aspartate Amino Transferase 15 U/L (0-32); Blood Urea Nitrogen 9 mg/dL (8-23); Calcium 9.7 mg/dL (8.5-10.5); Carbon Dioxide 22 mmol/L (22-29); Chloride 104 mmol/L (98-107); Creatinine Clr Calc Pharmacy 72.5488; Globulin 3.2 g/dL (1.3-4.6); Glucose 105 mg/dL (65-115); Osmolality Calculated 289 mOsm/kg (285-295); Sodium 140 mmol/L (136-145); Total Bilirubin 0.2 mg/dL (0.15-1.2); Total Protein 7.4 g/dL (6.6-8.7)
== END 2024-07-17 23:59 | disposition home or self-care (01) ==
PROVIDERS: Internal Medicine; PCP Nurse Practitioner Family; Visit Provider Nurse Practitioner Family
DX: Z53.9 Procedure and treatment not carried out, unspecified reason; Z08 Encounter for follow-up examination after completed treatment for malignant neoplasm; Z85.3 Personal history of malignant neoplasm of breast; R91.8 Other nonspecific abnormal finding of lung field; R05.3 Chronic cough; K44.9 Diaphragmatic hernia without obstruction or gangrene; D72.829 Elevated white blood cell count, unspecified; Z90.13 Acquired absence of bilateral breasts and nipples; Z92.3 Personal history of irradiation; Z92.21 Personal history of antineoplastic chemotherapy; Z92.23 Personal history of estrogen therapy; Z79.899 Other long term (current) drug therapy
CPT/HCPCS: 36415; 80053; 85025; 99215

== ENCOUNTER 2024-07-15 08:43 | Outpatient (CLI) | payer MEDICARE, MEDICAID, SELFPAY | END 2024-07-15 08:44 | disposition home or self-care (01) | PROVIDERS: PCP Nurse Practitioner Family; Visit Provider Nurse Practitioner Family | DX: J42 Unspecified chronic bronchitis (principal) | CPT/HCPCS: 94010 ==

== ENCOUNTER → 2024-07-30 09:53 | Outpatient (BNVA) | payer MEDICARE, MEDICAID, SELFPAY | PROVIDERS: PCP Nurse Practitioner Family; Visit Provider Student in an Organized Health Care Education/Training Program | DX: K46.9 Unspecified abdominal hernia without obstruction or gangrene (principal); R03.0 Elevated blood-pressure reading, without diagnosis of hypertension | CPT/HCPCS: 99203 ==

== ENCOUNTER 2024-09-04 14:14 | Oncology outpatient (recurring) (ONCR) | payer MEDICARE, MEDICAID, SELFPAY ==
--- NOTE | 2024-09-04 14:30 | CTR_ITS ---
PROCEDURE INFORMATION: Exam: CT Chest With Contrast; Diagnostic Exam date and time: 09/04/2024 2:32 PM Age: 63 years old Clinical indication: Prior surgery; Surgery date: 6+ months; Surgery type: Right breast mastectomy; HX of breast cancer, hiatal hernia, severe cough that patient attributes to the hiatal hernia; Additional info: R59.0 - localized enlarged lymph nodes TECHNIQUE: Imaging protocol: Diagnostic computed tomography of the chest with contrast. Radiation optimization: All CT scans at this facility use at least one of these dose optimization techniques: automated exposure control; mA and/or kV adjustment per patient size (includes targeted exams where dose is matched to clinical indication); or iterative reconstruction. Contrast material: OMNIPAQUE 350; Contrast volume: 100 ml; Contrast route: INTRAVENOUS (IV); COMPARISON: CT chest w con* [id number] 05/19/2024 2:16 PM RADIATION DOSE METRICS: Total DLP (mGy-cm): 379.51 FINDINGS: Lungs: Unremarkable. No consolidation. No masses. Pleural spaces: There is a new small right pleural effusion. No pneumothorax. Heart: Unremarkable. No cardiomegaly. No pericardial effusion. Lymph nodes: The right thoracic hilar lymph node has decreased in size in the interval. No new areas of adenopathy. Vasculature: Unremarkable. No aortic aneurysm. Stomach: There is a moderate hiatal hernia containing stomach. Bones/joints: Degenerative change is identified in the spine. There is no evidence for acute fracture or malalignment. Soft tissues: Unremarkable. CT/CT chest w con* [id number] IMPRESSION: When compared with 05/19/2024, the right thoracic hilar lymph node has decreased in size. No adenopathy by CT size criteria. There is a new small right pleural effusion. Hiatal hernia is not significantly changed.
[2024-09-04] MEDS: iohexol 350 mg/mL 500 mL Btl (per mL) IV (15:20)
== END 2024-09-14 23:59 | disposition home or self-care (01) ==
LOC: RAD 14:15 → ONCMED 09-07 09:34
PROVIDERS: PCP Nurse Practitioner Family; Visit Provider Nurse Practitioner Family
DX: Z08 Encounter for follow-up examination after completed treatment for malignant neoplasm (principal); Z85.3 Personal history of malignant neoplasm of breast; R91.8 Other nonspecific abnormal finding of lung field; R05.3 Chronic cough; K44.9 Diaphragmatic hernia without obstruction or gangrene; D72.829 Elevated white blood cell count, unspecified; Z90.13 Acquired absence of bilateral breasts and nipples; Z92.3 Personal history of irradiation; Z92.21 Personal history of antineoplastic chemotherapy; Z92.23 Personal history of estrogen therapy; Z79.899 Other long term (current) drug therapy; Z53.9 Procedure and treatment not carried out, unspecified reason; R59.0 Localized enlarged lymph nodes; R91.1 Solitary pulmonary nodule
CPT/HCPCS: 71260

== ENCOUNTER 2024-11-16 07:58 | Outpatient (CLI) | payer MEDICARE, MEDICAID, SELFPAY ==
--- NOTE | 2024-11-16 08:03 | CT_ITS ---
WS: [email or web address] CT chest wo con [id number] HISTORY: PULMONARY NODULE TECHNIQUE: Axial imaging performed through the thorax. Coronal and sagittal reformats are submitted. All CT scans at [facility] use at least one of these dose optimization techniques: automated exposure control; mA and/or kV adjustment per patient size (includes targeted exams where dose is matched to clinical indication); or iterative reconstruction. CONTRAST: None DLP: 281.58 mGy.cm COMPARISON: Chest CT 09/04/2024 and chest radiograph 10/27/2024 Lungs and central airway: Mild hyperinflation. No suspicious masses or nodules. Linear atelectasis LEFT lung base. Mild bronchiectasis in the RIGHT middle lobe. Nodules described on the recent chest radiograph correspond to dense areas of calcifications in the LEFT chest wall. This is at the site of the prior mastectomies with reconstruction and probably related to fat necrosis. These calcifications have been present on multiple prior CTs but have progressed slowly over time. Pleura: Normal. No pleural effusion. Heart and pericardium: Normal. Mediastinum and maricurz: Small benign-appearing lymph nodes. Vessels: Mild atherosclerosis aorta. Thoracic aorta is normal size. Chest wall and lower neck: Dense calcified mass in the anterior LEFT chest wall at the site of the prior mastectomy with reconstruction surgery. Probably related to fat necrosis and has been present on multiple prior examinations with progression. Calcified mass measures 4.5 x 2.9 cm. Upper abdomen: Hiatal hernia. Postsurgical changes at the GE junction. No adrenal mass. Prior cholecystectomy. Osseous structures: No destructive process. CT/CT chest wo con [id number] IMPRESSION: 1. Pulmonary nodules noted on a recent chest radiograph correspond to dystroph ic calcifications in the LEFT chest wall at the site of prior mastectomy and re construction surgery. 2. No pulmonary mass or nodule. 3. Bronchiectasis RIGHT middle lobe. 4. Bilateral prior mastectomies with reconstruction.
== END 2024-11-16 07:59 | disposition home or self-care (01) ==
PROVIDERS: PCP Nurse Practitioner Family; Visit Provider Nurse Practitioner Family
DX: Z42.1 Encounter for breast reconstruction following mastectomy (principal); J47.9 Bronchiectasis, uncomplicated; R91.8 Other nonspecific abnormal finding of lung field; J98.11 Atelectasis; R92.1 Mammographic calcification found on diagnostic imaging of breast; R91.1 Solitary pulmonary nodule
CPT/HCPCS: 71250

== ENCOUNTER 2024-12-07 11:27 | Outpatient (CLI) | payer MEDICARE, MEDICAID, SELFPAY ==
--- NOTE | 2024-12-07 11:40 | XR_ITS ---
WS: [email or web address] Exam: XR chest 2V* [id number] Date/Time of Exam: 12/07/2024 11:43 AM Reason For Exam: CHRONIC COUGH Comparison 10/27/2024. The lungs are fully expanded. No pulmonary infiltrates are seen. Normal cardiomediastinal silhouette and regional bony elements. Again noted are calcified nodules superimposing the LEFT chest which have proven to represent dystrophic calcification secondary to prior surgery. These are stable in appear ance. Surgical clips seen along the lower RIGHT and LEFT chest and the RIGHT axilla. No pleural effusion or pneumothorax. XR/XR chest 2V* [id number] IMPRESSION: 1. No acute cardiopulmonary finding. 2. Postoperative changes as discussed above.
== END 2024-12-07 11:28 | disposition home or self-care (01) ==
PROVIDERS: PCP Nurse Practitioner Family; Visit Provider Nurse Practitioner Family
DX: R05.3 Chronic cough (principal); R09.82 Postnasal drip; R91.8 Other nonspecific abnormal finding of lung field
CPT/HCPCS: 71046

== ENCOUNTER 2025-06-04 11:45 | Day surgery (SDC) | payer MEDICARE, MEDICAID, SELFPAY ==
[2025-06-04 12:06] VITALS: BP 126/92; PULSE 92; RESP 18; TEMP 36.7; O2SAT 96
--- NOTE | 2025-06-04 12:12 | US_ITS ---
WS: [email or web address] ULTRASOUND-GUIDED THORACENTESIS CLINICAL INFORMATION: pleural effusion PROCEDURE: Informed consent: The risks, benefits, and alternatives of the procedure were discussed with the patient. Verbal and written consent was obtained. Timeout: A timeout was performed to confirm the correct patient, procedure, and site. Site: RIGHT chest Preparation: A suitable skin site was identified. The patient was prepped and draped in usual sterile fashion. Lidocaine 1% was used for local anesthesia. Catheter: 4 Welsh One-Step catheter. Fluid Volume: 700 cc ml Color: Clear yellow Discarded safely. Sent to the laboratory for analysis. Complications: None. Patient disposition: Discharged from the department in stable condition. / thoracentesis [id number] IMPRESSION: 1. Uncomplicated ultrasound-guided RIGHT thoracentesis. 2. Fluid sent for requested diagnostic tests. 3. No pneumothorax on postthoracentesis radiograph
[2025-06-04 12:26] LABS: INR 0.96 (0.8-1.2); Prothrombin Time 13.40 SECONDS (12.1-14.9)
--- NOTE | 2025-06-04 12:46 | XR_ITS ---
WS: [email or web address] CHEST XRAY TECHNIQUE: Portable chest. CLINICAL INFORMATION: post thoracentesis COMPARISON: 12/07/2024 FINDINGS: Heart: Normal cardiac silhouette. Lungs: No pneumothorax status post RIGHT thoracentesis. No significant residual RIGHT pleural fluid. Small LEFT pleural effusion. Bones: Normal visualized bony structures. Cholecystectomy clips. Surgical clips RIGHT axilla. XR/XR chest 1V portable [id number] IMPRESSION: 1. No significant residual RIGHT pleural fluid postthoracentesis. No pneumotho rax. 2. Small LEFT pleural effusion.
[2025-06-04 13:15] VITALS: BP 137/93; PULSE 89; RESP 18; O2SAT 96
--- NOTE | 2025-06-04 13:35 | PC.NURSE ---
Right thoracentesis performed per radiologist, Dr. Marcum. 700 mL nichole fluid removed. Pt tolerated well. CXR following procedure shows no pneumothorax. Pt kept for 30 minutes. VSS. Pt instructed to return to ED for increased SOB or severe chest pain.
== END 2025-06-04 13:30 | disposition home or self-care (01) ==
LOC: GILAB 11:45
PROVIDERS: Radiology Neuroradiology; PCP Nurse Practitioner Family; Visit Provider Internal Medicine
PROC: (CPT 32554; principal; 2025-06-04 12:00)
DX: J90 Pleural effusion, not elsewhere classified (principal); R91.1 Solitary pulmonary nodule
CPT/HCPCS: 32555; 71045; 80503; 82042; 82945; 83615; 83986; 84157; 84478; 85610

== ENCOUNTER 2025-06-09 07:50 | Outpatient (CLI) | payer MEDICARE, MEDICAID, SELFPAY ==
--- NOTE | 2025-06-09 08:00 | NM_ITS ---
WS: [email or web address] NUCLEAR MEDICINE WHOLE BODY BONE SCAN HISTORY: Malignant neoplasm of upper-outer quadrant, history of breast cancer. COMPARISON: 10/17/2015, chest CT 11/16/2024 TECHNIQUE: The patient was injected with 24.5 mCi of Technetium 99m HDP and serial whole-body scintigrams have been performed with anterior and posterior images. New uptake in the RIGHT lateral sternal border was not present in 2016. Also not apparent on the chest CT from 11/16/2024. There is additional increased uptake at the RIGHT seventh costochondral junction which is stable since 2016. Mild AC joint and SC joint arthritis. Mild glenohumeral joint arthropathy. No rib lesions are identified. Degenerative changes in the ankles and knees. Normal soft tissue uptake. Kidneys are both identified. NM/NM bone scan whole body* [id number] IMPRESSION: 1. Single new focal uptake in the RIGHT lateral sternal border. Suspicious for metastatic site. 2. Long-term stability focal uptake in what is probably the LEFT seventh poste rior costochondral junction.
== END 2025-06-09 07:51 | disposition home or self-care (01) ==
PROVIDERS: PCP Nurse Practitioner Family; Visit Provider Internal Medicine
DX: C50.411 Malignant neoplasm of upper-outer quadrant of right female breast (principal); R91.1 Solitary pulmonary nodule; R93.7 Abnormal findings on diagnostic imaging of other parts of musculoskeletal system; M94.0 Chondrocostal junction syndrome [Tietze]; M89.8X8 Other specified disorders of bone, other site
CPT/HCPCS: 78306; A9561

== ENCOUNTER → 2025-06-14 11:21 | Day surgery (SDC) | payer MEDICARE, MEDICAID, SELFPAY ==
[2025-06-14 11:36] VITALS: BP 148/95; PULSE 85; RESP 20; TEMP 36.4; O2SAT 96
[2025-06-14 11:37] VITALS: BMI 32.9
--- NOTE | 2025-06-14 11:47 | US_ITS ---
WS: [email or web address] ULTRASOUND-GUIDED THORACENTESIS, LEFT HISTORY: excess pleural fluid Procedure, risks, and complications were explained to the patient. With the patient in an upright position, the skin over the LEFT posterior thorax was cleansed with ChloraPrep and anesthetized with 1% buffered lidocaine. A 5 Yi Yueh needle is inserted into the pleural fluid without complication. A pproximately 450 cc of light yellow pleural fluid is removed without difficulty. / thoracentesis [id number] IMPRESSION: 1. LEFT thoracentesis yielding 450 cc of fluid. 2. Chest radiograph to follow to evaluate for pneumothorax.
--- NOTE | 2025-06-14 12:51 | XR_ITS ---
WS: [email or web address] PORTABLE CHEST HISTORY: post thoracentesis, LEFT COMPARISON: Prior chest radiograph 06/04/2025 No pneumothorax status post LEFT thoracentesis. Very mild blunting of the costophrenic angles. Small amount of residual pleural fluid is likely. Nodule projecting over the mid LEFT thorax corresponds to densely calcified mass which has been previously described in the anterior chest wall. No pneumothorax. There is mild pulmonary edema which is new. Cardiac size: Normal. Mediastinum/Aorta: Normal mediastinum. Mild AC joint arthritis. XR/XR chest 1V portable [id number] IMPRESSION: 1. No pneumothorax status post LEFT thoracentesis. 2. Mild bilateral pleural thickening is probably related to small residual ple ural effusions. 3. Mild pulmonary congestion is new since the prior study. 4. Patient has a known calcified mass projecting over the mid LEFT thorax. Rancho cified mass is in the chest wall.
[2025-06-14 13:41] LABS: Mononuclear %, Pleural Fluid 96 %; Mononuclear, Pleural Fluid # 3.074 10^3/uL; Polynuclear Cells, Pleural # 0.114 10^3/uL; Polynuclear Cells, Pleural % 4 %
[2025-06-14 13:46] LABS: Cyto Order Verification No Order
[2025-06-14 14:11] LABS: Triglycerides, Pleural Fluid 15 mg/dL
[2025-06-14 14:26] LABS: Appearance, Pleural Fluid CLOUDY (CLEAR); Color, Pleural Fluid Yellow (Pale Yellow); Left Pleural Fluid Analysis Left Lung
[2025-06-14 14:27] LABS: Fluid Laterality Left Upper
[2025-06-14 15:31] LABS: PATH Referral YES
== END ==
PROVIDERS: Radiology Diagnostic Radiology; PCP Nurse Practitioner Family; Visit Provider Internal Medicine
PROC: (CPT 32554; principal; 2025-06-14 13:00)
DX: J90 Pleural effusion, not elsewhere classified (principal)
CPT/HCPCS: 32555; 71045; 80503; 82042; 82945; 83615; 83986; 84157; 84478; 87070; 87075; 87205; 88112; 89050

== ENCOUNTER 2025-06-16 09:48 | Oncology outpatient (recurring) (ONCR) | payer MEDICARE, MEDICAID, SELFPAY ==
[2025-06-03 15:43] LABS: Hematocrit 37.1 % (36-47); Hemoglobin 11.80 g/dL (11.27-16.99); Mean Corpuscular HGB Conc 31.8 g/dL (30-55); Mean Corpuscular Hemoglobin 27.7 pg (27-33); Mean Corpuscular Volume 87.1 fl (85-98); Nucleated Red Blood Cells % 0 %; Platelet Count 405 10^3/cmm (157-399); Red Blood Count 4.26 10^6/uL (3.85-5.65); White Blood Count 7.85 10^3/uL (3.29-11.43)
[2025-06-03 19:12] LABS: Alanine Aminotransferase 10 U/L (0-33); Albumin Level 3.9 g/dL (3.5-5.2); Alkaline Phosphatase 92 U/L (35-105); Chloride 100 mmol/L (98-107); Ferritin 81 ng/mL (15-150); Iron 67 ug/dL (37-145); Potassium 4.1 mmol/L (3.5-5.1); Sodium 138 mmol/L (136-145); Total Iron Binding Capacity 359 mcg/dl; Unsaturated Iron Binding 292 ug/dL (112-347)
[2025-06-03 19:22] LABS: Anion Gap 17.1 (5-19); Aspartate Amino Transferase 22 U/L (0-32); Blood Urea Nitrogen 8 mg/dL (8-23); Calcium 9.5 mg/dL (8.5-10.5); Carbon Dioxide 25 mmol/L (22-29); Globulin 3.2 g/dL (1.3-4.6); Glucose 72 mg/dL (65-115); Osmolality Calculated 279 mOsm/kg (285-295); Total Protein 7.2 g/dL (6.6-8.7)
[2025-06-14] MEDS: iohexol 350 mg/mL 500 mL Btl (per mL) PO (14:39)
[2025-06-14] MEDS: iohexol 350 mg/mL 500 mL Btl (per mL) IV (14:40)
--- NOTE | 2025-06-14 17:15 | CT_ITS ---
WS: [email or web address] CT ABDOMEN AND PELVIS WITH CONTRAST HISTORY: malignant neoplasm of upper outer quadrant, history of breast cancer. TECHNIQUE: Imaging performed of the abdomen and pelvis with IV contrast. Single phase imaging of the abdomen. Coronal and sagittal reformats are submitted. All CT scans at [facility] use at least one of these dose optimization techniques: automated exposure control; mA and/or kV adjustment per patient size (includes targeted exams where dose is matched to clinical indication); or iterative reconstruction. IV CONTRAST: Omnipaque 350; 100 mL IV. Oral contrast: Yes. DLP: 527.68 mGy.cm COMPARISON: 10/14/2021 Lower thorax: Small layering bilateral pleural effusions. Compressive atelectasis at the lung bases. Prior surgery at the GE junction. There is a small hiatal hernia. Heart is normal size. Liver/biliary system: Normal size liver. Decreased attenuation along the falciform ligament is probably an area of focal fatty sparing. No displacement of the adjacent vessels. Normal portal vein. Gallbladder: Prior cholecystectomy. Normal common bile duct. Pancreas: Normal size pancreas and pancreatic duct. No adjacent inflammation. Spleen: Normal size spleen. No mass or infarct. Adrenal glands: Normal. Right kidney: Normal size kidney. No hydronephrosis. 4.6 mm too small to characterize hypodensity in the mid kidney. Left kidney: Normal. Aorta: Normal. Lymphadenopathy: None. Free fluid: None. GI tract: Stomach is normally distended. No small bowel obstruction. Diffuse moderate constipation throughout the colon. No colitis or wall thickening. No obstruction. Appendix is not identified. Abdominal wall: Diastases of the abdominis rectus. Pelvis: No free fluid or adenopathy within the pelvis. Bones: L4 and L5 anterolisthesis by 2 to 3 mm. No destructive bone lesions. CT/CT abdomen pelvis w con* [id number] IMPRESSION: 1. No ascites or lymphadenopathy. 2. No acute abdominal or pelvic abnormalities. 3. Marked diffuse constipation and fecal retention. 4. Focal fatty sparing along the falciform ligament. 5. Prior cholecystectomy. 6. Small bilateral pleural effusions.
== END 2025-06-16 23:59 | disposition home or self-care (01) ==
PROVIDERS: PCP Nurse Practitioner Family; Visit Provider Internal Medicine
DX: Z08 Encounter for follow-up examination after completed treatment for malignant neoplasm (principal); Z85.3 Personal history of malignant neoplasm of breast; R91.8 Other nonspecific abnormal finding of lung field; R05.3 Chronic cough; K44.9 Diaphragmatic hernia without obstruction or gangrene; D72.829 Elevated white blood cell count, unspecified; Z90.13 Acquired absence of bilateral breasts and nipples; Z92.3 Personal history of irradiation; Z92.21 Personal history of antineoplastic chemotherapy; Z92.23 Personal history of estrogen therapy; Z79.899 Other long term (current) drug therapy; Z53.9 Procedure and treatment not carried out, unspecified reason; R59.0 Localized enlarged lymph nodes; R91.1 Solitary pulmonary nodule
CPT/HCPCS: 36415; 74177; 80053; 82728; 83010; 83540; 83550; 83615; 85025; 85045; 99213; 99214